=== PATIENT | male | born 1960 | race Caucasian/White ===

== ENCOUNTER 2021-07-07 17:20 | Inpatient (IN) | payer MEDICAID, SELFPAY ==
[~2021-07-07] VITALS: Ht 172.7 cm; Wt 104.8 kg
[2021-07-07 17:20] VITALS: BP_SYST 128
--- NOTE | 2021-07-07 17:20 | NUR ---
Pt brought in by ALS ambulance from [facility] after pt was found down at home. LKWT was 1634, pt presents altered, incomprehensible speech, unable to follow commands.
--- NOTE | 2021-07-07 17:20 | NUR ---
Patient to ER bed 3 to gown for evaluation. Side rails up.
--- NOTE | 2021-07-07 17:20 | NUR ---
BROUGHT IN BY [facility], PLACED IN BED #[address] JOHN AT BEDSIDE UPON ARRIVAL.
--- NOTE | 2021-07-07 17:21 | NUR ---
Taken to CT by werner and RN
--- NOTE | 2021-07-07 17:21 | NUR ---
CODE STROKE CALLED BY ER STAFF
--- NOTE | 2021-07-07 17:22 | NUR ---
ER at bedside examining patient.
[2021-07-07] MEDS ORDERED: ONDANSETRON HCL 4 MG/2 ML VIAL ONE (17:45)
[2021-07-07] MEDS ORDERED: ONDANSETRON HCL 4 MG/2 ML VIAL IVP ONE (17:45)
[2021-07-07 17:47] LABS: BASOPHILS % (AUTO) 0.5 % (0.0-2.0); EOSINOPHILS # (AUTO) 0.3 K/uL (0.0-0.4); EOSINOPHILS % (AUTO) 3.8 % (0.0-4.0); HEMATOCRIT 43.8 % (36-54); HEMOGLOBIN 14.9 g/dL (14.0-18.0); LYMPHOCYTES # (AUTO) 1.8 K/uL (1.0-5.5); MEAN CORPUSCULAR HEMOGLOBIN 32 pg (27-31); MEAN CORPUSCULAR HGB CONC 34 % (32-36); MEAN CORPUSCULAR VOLUME 95 fL (79.0-98.0); MONOCYTES # (AUTO) 0.6 K/uL (0.0-1.0); MONOCYTES % (AUTO) 8.1 % (1.7-9.3); NEUTROPHILS # (AUTO) 4.3 K/uL (1.8-7.7); NEUTROPHILS % (AUTO) 61.6 % (40.0-70.0); PLATELET COUNT (AUTO) 208 K/uL (130-430); RED BLOOD CELL COUNT(AUTO) 4.61 MIL/uL (4.2-6.2); RED CELL DISTRIBUTION WIDTH 13.7 % (9.0-15.0)
--- NOTE | 2021-07-07 17:50 | NUR ---
Contacted by telemedicine, pt information given and forwarded to Neurologist. Awaiting Neurologist reply at this time.
[2021-07-07 18:03] LABS: CALCIUM 8.3 mg/dL (8.4-11.0); CREATININE 1.14 mg/dL (0.55-1.30); POTASSIUM 3.6 mmol/L (3.5-5.1)
[2021-07-07 18:08] LABS: ALBUMIN 3.4 g/dL (3.4-4.8); TOTAL BILIRUBIN 0.3 mg/dL (0.0-1.0)
--- NOTE | 2021-07-07 18:11 | NUR ---
Marcell Martin called back for further instructions on patient care.
--- NOTE | 2021-07-07 18:13 | NUR ---
Dr. Frank at bedside consulting with Telemedicine
--- NOTE | 2021-07-07 18:15 | NUR ---
Neuro stated no TPA needed at this time, recommended toxicology screen and CTA if possible.
[2021-07-07 18:18] LABS: INR 0.9 (0.80-1.20); PROTHROMBIN TIME 9.4 SECS (9.5-12.5)
[2021-07-07 18:41] LABS: BILIRUBIN,URINE NEGATIVE (NEGATIVE); CLARITY/URINE CLEAR (CLEAR); COLOR,URINE YELLOW (YELLOW); GLUCOSE,URINE NEGATIVE (NEGATIVE); KETONES,URINE NEGATIVE (NEGATIVE); LEUKOCYTE ESTERASE ,URINE NEGATIVE (NEGATIVE); NITRITE, URINE NEGATIVE (NEGATIVE); PROTEIN URINE NEGATIVE (NEGATIVE); UROBILINOGEN,URINE 0.2 (0.2-1.0)
[2021-07-07 18:44] LABS: BLOOD, URINE TRACE (NEGATIVE)
[2021-07-07 18:54] LABS: BACTERIA,URINE FEW /HPF (None Seen); RBC,URINE 0-3 /HPF (0-3); WBC,URINE 0-3 /HPF (0-3)
[2021-07-07 18:56] LABS: BARBITURATE, URINE NEGATIVE (NEG <=200); BENZODIAZEPINE, URINE NEGATIVE (NEG <=150); CANNABINOID, URINE NEGATIVE (NEG <=50); COCAINE, URINE NEGATIVE (NEG <=150); METHAMPHETAMINES SCREEN,URINE POSITIVE (NEG <=500); OPIATE, URINE NEGATIVE (NEG <=100); PHENCYCLIDINE SCREEN,URINE NEGATIVE (NEG <=25); UR TRICYCLIC ANTIDEPRESSANTS NEGATIVE (NEG <=300); URINE AMPHETAMINE POSITIVE (NEG <=500); URINE METHADONE NEGATIVE (NEG <=200); URINE OXYCODONE SCREEN NEGATIVE (NEG <=100); URINE PROPOXYPHENE SCREEN NEGATIVE (NEG <=300)
[2021-07-07] MEDS ORDERED: NACL 0.9% 1,000 ML IV ONE (19:30)
--- NOTE | 2021-07-07 20:21 | NUR ---
Patient resting quietly. No acute distress noted. Vital signs within normal range.
--- NOTE | 2021-07-07 21:00 | NUR ---
Assumed care of patient at change of shift. Introduced self to patient, sleeping comfortably at this time. easily arousable but [place]. noted to have left sided facial paralysis/drooping. No other neuro focal deficits noted. iv site to LAC/RAC patent and intact. bed to low position sr up, continue to monitor.
[2021-07-07] MEDS ORDERED: D5/0.45 NS 1,000 ML IV SCH (21:15)
--- NOTE | 2021-07-07 21:35 | NUR ---
Sister at bedside reports patient does not take any medication and is full code
[2021-07-07] MEDS ORDERED: AZITHROMYCIN 500 MG in D5W 250 ML IV ONE (22:15)
[2021-07-07] MEDS ORDERED: cefTRIAXone 1 GM IVPB PREMIX 50 ML IV ONE (22:15)
--- NOTE | 2021-07-07 23:00 | NUR ---
Patient will be admitted to care of . Admitted to Tele unit. Will go to room 113b. Belongings list completed. Complete and up to date summary report printed. SBAR report to be given at bedside with opportunity for questions. report given to jeremy rx\n
[2021-07-07] MEDS ORDERED: AZITHROMYCIN 500 MG/VIAL (ZITHROMAX) IV ONE (23:10)
[2021-07-07 23:20] VITALS: BP_SYST 148
--- NOTE | 2021-07-07 23:20 | NUR ---
ADMISSION NOTE Received patient from ER via sandor, received report from SENIOR TECH MANUFACTURING ENGINEERING. Patient admitted with diagnosis of SYNCOPE,ALOC,TIA, BELLS PALSY. Patient oriented to hospital routine, call light, toileting and safety-patient verbalized understanding.
--- NOTE | 2021-07-07 23:30 | NUR ---
patient medicated as ordered w/ d5 1/2 ns at 50ml/hr along w/ rocephin 1gm ivpb to RAC. patient azithromycin to be hung by Sara segura.
--- NOTE | 2021-07-08 02:14 | NUR ---
ROUNDS PATIENT ASLEEP, RESPIRATIONS EVEN AND UNLABORED, WILL CONTINUE TO MONITOR.
--- NOTE | 2021-07-08 04:29 | NUR ---
Consultation Paged Reason for Consultation: Aloc, Syncope Was consult called: Y Person who was notified: Stephany Consulting Physician: Dr. Todd Ordering Physician: Dr. Fitzgerald
--- NOTE | 2021-07-08 05:12 | NUR ---
CONSULT REASON FOR CONSULT: ALOC CONSULTING PHYSICIAN: DR. ENNIS SHOW DESIGN SUPERVISOR PHONE NUMBER: [phone] ORDERING PHYSICIAN: DR. NAVARRO
--- NOTE | 2021-07-08 06:57 | NUR ---
CLOSING NOTES PATIENT STILL ASLEEP, RESPIRATIONS EVEN AND UNLABORED, NO SIGNS OF ANY PAIN AND DISCOMFORT NOTED. ALL NEEDS ATTENDED TO. CALL LIGHT PLACED WITHIN REACH.
[2021-07-08 07:21] LABS: BASOPHILS % (AUTO) 0.2 % (0.0-2.0); HEMOGLOBIN 14.7 g/dL (14.0-18.0); LYMPHOCYTES # (AUTO) 0.7 K/uL (1.0-5.5); LYMPHOCYTES % (AUTO) 7.5 % (20.5-51.5); MEAN CORPUSCULAR HEMOGLOBIN 33 pg (27-31); MEAN CORPUSCULAR HGB CONC 35 % (32-36); MEAN CORPUSCULAR VOLUME 93 fL (79.0-98.0); MONOCYTES # (AUTO) 0.5 K/uL (0.0-1.0); MONOCYTES % (AUTO) 5.2 % (1.7-9.3); NEUTROPHILS # (AUTO) 8.5 K/uL (1.8-7.7); NEUTROPHILS % (AUTO) 87.1 % (40.0-70.0); PLATELET COUNT (AUTO) 199 K/uL (130-430); RED BLOOD CELL COUNT(AUTO) 4.52 MIL/uL (4.2-6.2); RED CELL DISTRIBUTION WIDTH 13.8 % (9.0-15.0); WHITE BLOOD COUNT (AUTO) 9.8 K/uL (4.8-10.8)
[2021-07-08 08:00] VITALS: BP_SYST 136
[2021-07-08 08:00] LABS: ANION GAP 9 (5-15); CALCIUM 8.2 mg/dL (8.4-11.0); CHLORIDE 109 mmol/L (98-107); CREATININE 0.85 mg/dL (0.55-1.30); GLUCOSE 132 mg/dL (70-99); POTASSIUM 3.6 mmol/L (3.5-5.1); SODIUM SERUM 140 mmol/L (136-145); UREA NITROGEN, BLOOD 11 mg/dL (8-21)
--- NOTE | 2021-07-08 08:00 | NUR ---
Initial Notes Patient lying asleep in bed, wakes to verbal stimuli. Patient is very lethargic. Oriented to self. Noted left-sided facial drooping. Slurred speech. Patient unable to lift left upper and lower extremities. Oxygen saturation on room air 88%, patient with labored breathing. Placed patient on oxygen 2 liters per minute via N/C, saturation remained below 90%. Increased oxygen to 4 liters per minute, patient now saturating at 95% with non-labored breathing. Will continue to monitor.
[2021-07-08 08:03] LABS: GFR AFRICAN AMERICAN 118 mL/min (>90)
[2021-07-08 08:16] LABS: ALANINE AMINOTRANSFERASE 19 U/L (12-78); ASPARTATE AMINOTRANSFERASE 15 U/L (10-37); THYROID STIMULATING HORMONE 1.14 uIu/mL (0.36-3.74)
[2021-07-08 08:18] LABS: TOTAL BILIRUBIN 0.5 mg/dL (0.0-1.0)
--- NOTE | 2021-07-08 10:00 | NUR ---
Notes- Bladder scan done and has 400ml urine at this time, called Dr. Fitzgerald cell and left voice message.
--- NOTE | 2021-07-08 10:07 | NUR ---
Nutrition Update Billy Scale 18 noted. Pt admitted for syncope, ALOC. Diet: NPO (pending swallow screen) BMI: 35.2 kg/m2 RD to follow per nutrition care standards.
--- NOTE | 2021-07-08 10:30 | NUR ---
MD ROUNDS Dr. Todd here to see patient.
[2021-07-08 10:50] LABS: TRIGLYCERIDES 75 mg/dL (30-150)
[2021-07-08 10:51] LABS: CHOLESTEROL 111 mg/dL (<200); HDL CHOLESTEROL 34 mg/dL (>45); LDL CHOLESTEROL 70 mg/dL (<100)
--- NOTE | 2021-07-08 11:00 | NUR ---
Rosas Catheter Insertion Inserted 16 F Rosas catheter with aseptic technique. Catheter patent and draining 200 cc of clear, yellow urine. Patient tolerated well.
[2021-07-08] MEDS: NACL 0.9% 1,000 ML IV SCH ×2 (11:38→21:00)
--- NOTE | 2021-07-08 11:50 | NUR ---
Notes Spoke with patient's sister Kria to obtain consent for MRI. Consent obtained. Dr. Todd spoke with sister Kira regarding prognosis and procedure.
[2021-07-08 12:00] VITALS: BP_SYST 135
--- NOTE | 2021-07-08 12:22 | NUR ---
Restraints: Patient is getting more awake and trying to get out of bed, trying to pull out vivas and ivf tubinng, spoke to Dr Fitzgerald and ordered to put restraints. will monitor patient.
--- NOTE | 2021-07-08 12:37 | NUR ---
CONSULTATION PAGED/CALLED Reason for Consultation: [] SYNCOPE Person Who was Notified: [] DR MARIE Consulting Physician: [] DR MARIE Glazier Helper Specialty: [] CARDIO Ordering Physician: [] DR NELSON
--- NOTE | 2021-07-08 12:41 | NUR ---
REMINDED NEURO DR ENNIS, ANOTHER NEW CONSULT RE: ALOC. TEXTED HIS HIS CELL PHONE
--- NOTE | 2021-07-08 13:15 | NUR ---
SALES REPRESENTATIVE PUBLIC UTILITIES Visit Dr. Fitzgerald's SALES REPRESENTATIVE PUBLIC UTILITIES Mirta here to see patient.
--- NOTE | 2021-07-08 13:30 | NUR ---
U/S Tech at bedside providing echocardiogram.
--- NOTE | 2021-07-08 15:00 | NUR ---
Notes Patient taken for MRI. Spoke with family regarding restraints for patient safety. Family gave consent.
--- NOTE | 2021-07-08 15:45 | NUR ---
MRI- Per echocardiograph tech, they cannot do test because patient cannot stay still. Dr. Todd Made aware.
[2021-07-08 16:37] VITALS: BP_SYST 131
--- NOTE | 2021-07-08 16:42 | NUR ---
S.T. SWALLOW EVAL SWALLOW EVAL COMPLETED. PT PRESENTS W/ MOD OROPHARYNGEAL DYSPHAGIA W/ DELAYED BOLUS TRANSFER FOR PUREE AND COUGHING ON THIN LIQUIDS INDICATING RISK FOR ASPIRATION. PT ALSO W/ DECREASED SUSTAINED ALERTNESS WHICH WILL INCREASE HIS RISK FOR ASPIRATION, MALNUTRITION, AND DEHYDRATION. REC: PUREE DIET. THICKENED LIQUIDS (NECTAR THICK CONSISTENCY). FEED ONLY WHEN FULLY AWAKE. NURSE CHICHI KATZ NOTIFIED.
--- NOTE | 2021-07-08 17:45 | NUR ---
U/S natural gas plant technician here to perform U/S of bilateral carotid.
--- NOTE | 2021-07-08 18:31 | NUR ---
Closing Notes Patient lying in bed, wakes to name. Family at bedside. No signs of distress or pain noted. HOB elevated 30 degrees. Bed left in lowest position, bed alarm on.
--- NOTE | 2021-07-08 19:04 | NUR ---
Notes Dr. Hamilton here and made aware of neuro consult. Per MD, he will see patient tomorrow morning because patient was seen by tele neuro already.
--- NOTE | 2021-07-08 19:30 | NUR ---
Opening note Received report and assumed care. Patient lethargic and restless. Left sided flacid but able to disconnect java grails developer with right hand despite restraint present. Requires frequent reorientation; unable to follow commands. will continue to monitor.
[2021-07-08 20:00] VITALS: BP_SYST 147
--- NOTE | 2021-07-08 20:30 | NUR ---
Assessment completed; repositioned for comfort frequently. will continue to monitor.
[2021-07-09 00:30] VITALS: BP_SYST 156
[2021-07-09] MEDS: NACL 0.9% 1,000 ML IV SCH ×2 (05:32→17:00)
--- NOTE | 2021-07-09 06:55 | NUR ---
IV site Right hand 22g started by Srikanth PATE
[2021-07-09 07:21] LABS: BASOPHILS % (AUTO) 0.3 % (0.0-2.0); EOSINOPHILS # (AUTO) 0.1 K/uL (0.0-0.4); EOSINOPHILS % (AUTO) 0.5 % (0.0-4.0); HEMATOCRIT 47.8 % (36-54); HEMOGLOBIN 16.5 g/dL (14.0-18.0); LYMPHOCYTES # (AUTO) 1.2 K/uL (1.0-5.5); MEAN CORPUSCULAR HEMOGLOBIN 32 pg (27-31); MEAN CORPUSCULAR HGB CONC 34 % (32-36); MEAN CORPUSCULAR VOLUME 94 fL (79.0-98.0); MONOCYTES # (AUTO) 0.9 K/uL (0.0-1.0); MONOCYTES % (AUTO) 7.2 % (1.7-9.3); NEUTROPHILS # (AUTO) 9.8 K/uL (1.8-7.7); PLATELET COUNT (AUTO) 223 K/uL (130-430); RED BLOOD CELL COUNT(AUTO) 5.08 MIL/uL (4.2-6.2); RED CELL DISTRIBUTION WIDTH 13.8 % (9.0-15.0); WHITE BLOOD COUNT (AUTO) 11.9 K/uL (4.8-10.8)
--- NOTE | 2021-07-09 07:25 | NUR ---
Initial Note Patient found sitting on the floor with respiratory therapist at bedside. Patient was found by respiratory therapist already on the floor. Restraints were off. Bed alarm off at the time. Three bedside rails up. Patient confused and unable to answer questions, but able to follow some commands. Patient able to assist with getting back into bed with right arm and right leg only. Four person assist back into bed. Bed alarm on, bed in lowest position. Vital signs taken, restraints put back on, no distress noted. No visible injury noted.
[2021-07-09 07:27] LABS: CALCIUM 8.5 mg/dL (8.4-11.0); CREATININE 0.92 mg/dL (0.55-1.30); POTASSIUM 4.3 mmol/L (3.5-5.1)
--- NOTE | 2021-07-09 07:50 | NUR ---
MD Rounds Dr. Hamilton here to see and examine patient at bedside, made aware of fall.
[2021-07-09 08:00] VITALS: BP_SYST 156
--- NOTE | 2021-07-09 08:30 | NUR ---
Family Notified of Fall Spoke with patient's sister Kira and notified of fall.
--- NOTE | 2021-07-09 11:40 | NUR ---
notes- patient having EEG at bedside at this time.
[2021-07-09 12:00] VITALS: BP_SYST 157
--- NOTE | 2021-07-09 12:55 | NUR ---
Notes Family visiting at bedside. Patient arouses to family's voices and tries to speak. Becomes lethargic and falls back to sleep.
[2021-07-09 16:00] VITALS: BP_SYST 149
--- NOTE | 2021-07-09 16:41 | NUR ---
CT Scan Assisted patient to CT scan but unable to perform test. Patient very agitated and moving restlessly. Spoke with Dr. Hamilton and notified.
[2021-07-09] MEDS ORDERED: LORazepam 2 MG/ML VIAL IVP ONE (16:45)
--- NOTE | 2021-07-09 16:45 | NUR ---
HIGH ALERT NOTE: Called Dr. ENNIS back at [phone] identified within the medical roster to verify physician authenticity.
--- NOTE | 2021-07-09 16:50 | NUR ---
Notes Informed radiology that patient has a sedative ordered for CT scan. Asked if they can complete procedure tonight if possible and tomorrow morning if necessary.
--- NOTE | 2021-07-09 16:50 | NUR ---
Dietitian Recommendations * Recommend continuing puree diet w/ NTL (ONS Ensure Enlive TID comes standard w/ this diet -- provides an additional 1050 kcal/day, 60 gm protein/day) * Encourage increase PO intakes when fully alert LEOP[address] RD Please refer to Nutrition Assessment for details. Addendum: 07/09/21 at [address] Amended: Links added.
--- NOTE | 2021-07-09 18:38 | NUR ---
Closing Notes Patient asleep in bed. No signs of pain or distress noted. Oxygen flowing at 4 liters per minute with 95% saturation. Bed left in lowest position, bed alarm on.
--- NOTE | 2021-07-09 19:30 | NUR ---
Opening Note Received report. Pt Awake with eyes closed and restless. HOB elevated, no facial grimacing noted. On 4L NC O2 state 96%, no respiratory distress noted, labored on exertion. Has R hand IV patent and intact on SL. Rosas Cath in place and bag secure to bedside. Call light within reach, bed to lowest/locked and alarmed. On safety fall/aspiration precaution. All needs attended to. Will continue to monitor
--- NOTE | 2021-07-09 19:55 | NUR ---
Note Received CT report from Kira. Paged Dr. Hamilton and made aware of new findings. No new orders and no BP medication unless blood pressure SBP above 200.
[2021-07-09 20:52] VITALS: BP_SYST 156
[2021-07-10 00:20] VITALS: BP_SYST 146
[2021-07-10] MEDS: NACL 0.9% 1,000 ML IV SCH ×3 (00:20→22:02)
[2021-07-10 00:39] VITALS: BP_SYST 159
--- NOTE | 2021-07-10 06:25 | NUR ---
CLOSING NOTE Pt resting in bed with HOB elevated. Alertx0, non-labored breathing, no respiratory distress, on 4LNC O2 stat 95%. IV site patent and intact, no complications. All needs attended to. Call light within reach, bed to lowest and locked. On fall safety/aspiration precaution.
[2021-07-10 07:42] LABS: BASOPHILS % (AUTO) 0.4 % (0.0-2.0); EOSINOPHILS # (AUTO) 0.2 K/uL (0.0-0.4); EOSINOPHILS % (AUTO) 1.9 % (0.0-4.0); HEMATOCRIT 49.6 % (36-54); HEMOGLOBIN 17.1 g/dL (14.0-18.0); LYMPHOCYTES # (AUTO) 1.3 K/uL (1.0-5.5); LYMPHOCYTES % (AUTO) 11.5 % (20.5-51.5); MEAN CORPUSCULAR HEMOGLOBIN 32 pg (27-31); MEAN CORPUSCULAR HGB CONC 34 % (32-36); MEAN CORPUSCULAR VOLUME 94 fL (79.0-98.0); MONOCYTES % (AUTO) 8.7 % (1.7-9.3); NEUTROPHILS # (AUTO) 8.9 K/uL (1.8-7.7); NEUTROPHILS % (AUTO) 77.5 % (40.0-70.0); PLATELET COUNT (AUTO) 202 K/uL (130-430); RED BLOOD CELL COUNT(AUTO) 5.27 MIL/uL (4.2-6.2); RED CELL DISTRIBUTION WIDTH 13.6 % (9.0-15.0); WHITE BLOOD COUNT (AUTO) 11.5 K/uL (4.8-10.8)
--- NOTE | 2021-07-10 08:00 | NUR ---
Patient is in bed, A/Ox1. Garbled speech. On 4L NC. Saturation well. V/S within acceptable parameters. Call light in place, bed locked at the lowest position, will continue to monitor.
[2021-07-10 08:10] LABS: CALCIUM 8.2 mg/dL (8.4-11.0); CREATININE 0.81 mg/dL (0.55-1.30); POTASSIUM 3.2 mmol/L (3.5-5.1)
[2021-07-10] MEDS ORDERED: ASPIRIN 81 MG TAB.CHEW PO ONE (10:30)
--- NOTE | 2021-07-10 11:00 | NUR ---
IV RE-INSERTION: Complaining of pain to IV site. Restarted on Right AC, #20. Successful after attempts. Site intact and patent.
[2021-07-10 12:20] VITALS: BP_SYST 152
--- NOTE | 2021-07-10 14:37 | NUR ---
patient attempts to get out bed; he is instructed not to get out of bed. Restraints remain on.
[2021-07-10 16:20] VITALS: BP_SYST 162
--- NOTE | 2021-07-10 18:55 | NUR ---
HIGH ALERT NOTE: Called Dr. Fitzgerald back at identified within the medical roster to verify physician authenticity.
[2021-07-10 19:00] VITALS: BP_SYST 142
--- NOTE | 2021-07-10 19:15 | NUR ---
change of shift.pt.presents affect;restless.loc;confused.pt.presents restraint rt.wrist.in place skin/circulation assessed wnl. pt.presents iv access intact location;rt.antecubital iv fluids infusing.pt.presents vivas cath intact urine content;volume present. pt.presents incoherent speech;un-intelligble.call light/telephone w/in access of the pt. '
--- NOTE | 2021-07-10 19:30 | NUR ---
Opening note Received pt, resting in bed with HOB elevated. Alertx1 on 4L NC no distress noted, labored on exertion. Awake, appears restless and responsive with slur speech. IV on LFA patent and intact, no infiltration or complications, IVF running. All needs attended to. Education solid waste division supervisor light usage and orientation of room, pt unable to understand. Rosas Cath intact and secured, right hand soft restraint in place, no complications. Bed to lowest and locked/alarmed, with call light within reach. On fall/aspiration precaution. Will continue to monitor.
[2021-07-10] MEDS ORDERED: POTASSIUM CHLORIDE 40 MEQ in NS 250 ML IV ONE (20:00)
--- NOTE | 2021-07-10 20:00 | NUR ---
i noted had ordered k+rider:40meq's.i have initiated the administration k+rider.rt.wrist restraint intact skin/circulation wnl. pt.repositioned.[address] via [address] in place.call light/telephone placed w/in access of the pt.
[2021-07-10 20:14] VITALS: BP_SYST 142
[2021-07-10] MEDS ORDERED: KCL 40 mEq in 100 mL (PREMIX) 100 ML IV ONE (21:58)
--- NOTE | 2021-07-10 22:00 | NUR ---
p.assessed.pt.presents affect;restless.loc:confused.restraint rt.wrist in place skin/circulation assessed wnl.iv access intact iv fluids infusing.pt.repositioned.call light/telephone placed w/in access of the pt.
--- NOTE | 2021-07-10 22:52 | NUR ---
note Pt is more restless/agitated and trying to get out of bed. Pt has left side weakness and gaining strength. Pt was able to pull IV line with left hand from the right side of bed, disconnecting IV tubing from IV bag. Found pt holding IV tubing on left hand and fluids spilled on to the floor. Page Dr. Fitzgerald and received order Ativan 1mg PRN and Apply left hand restraint for safety.
--- NOTE | 2021-07-10 22:53 | NUR ---
HIGH ALERT NOTE: Called Dr. Fitzgerald and identified within the medical roster to verify physician authenticity.
--- NOTE | 2021-07-10 23:15 | NUR ---
pt.presents increased affect;aggressive/loc;confused.isaiah;risk manager paged . apprised of the pt's change in status. ordered ativan 1mg ivp q-4hrs/prn.i have administered ativan 1mg ivp.to assess the pt's status per protocol.pt.repositioned.iv access intact. call light/telephone placed w/in access of the pt.pt.presents active lt.hand.pt.had grasps the iv line. ordered restraints wrist bilateral lt.wrist restraints in conjunction w rt.wrist restraints applied.initial.skin/circulation assessed wnl.
--- NOTE | 2021-07-10 23:15 | NUR ---
note Pt has now bilateral soft wrist restrain as per order. Still agitated and yelling with slur speech, unable to make needs known. RN will administer IVP Ativan 1mg PRN as per order and will monitor closely.
[2021-07-10] MEDS: LORazepam 2 MG/ML VIAL IVP PRN (23:20)
--- NOTE | 2021-07-11 | NUR ---
pt.assessed.pt.presents quiescent affect;resting.restraints wrist bilateral in place.skin/circulation wnl.iv access intact iv fluids infusing.o2 nasal cannulae in place.pt.repositioned.call light/telephone placed w/in access of the pt.
[2021-07-11 01:17] VITALS: BP_SYST 150
--- NOTE | 2021-07-11 02:00 | NUR ---
pt.assessed.pt.presents affect;restless;aggressive.loc:confused.i have administered ativan:1mg ivp.to assess the pt per protocol.pt.repositioned.iv access intact.o2 nasal cannulae placed;applied to the pt.call light/telephone placed w/in access of the pt.restraints wrist bllateral in place skin/circulation assessed wnl.
[2021-07-11] MEDS: LORazepam 2 MG/ML VIAL IVP PRN ×3 (02:03→23:33)
--- NOTE | 2021-07-11 04:00 | NUR ---
pt.assessed.pt.presents affect;restless/loc:confused.pt.repositioned.iv access intact.restraints wrist bilateral in place skin/circulation assessed wnl.pt.requested water.pt provided water w thicket mixture.call light/telephone placed w/in access of the pt.
[2021-07-11] MEDS: NACL 0.9% 1,000 ML IV SCH ×2 (05:15→22:05)
--- NOTE | 2021-07-11 06:04 | NUR ---
pt.assessed.pt.presents affect;restless/aggressive.loc;confused.i have administered ativan:1mg ivp to assess the pt.per protocol.pt.repositioned.iv access intact iv fluids infusing.
--- NOTE | 2021-07-11 06:09 | NUR ---
Closing note Pt awake/restless/agitated/kicking. Yelling with slur speech. Alertx0 on 4L NC O2 stat 95% on exertion with labored breathing. Ativan 1mg given per RN PRN. Bilateral restrain in place no complications. Pt has multiple attempts to get out of bed periodically. IV patent and intact, no infiltration or complications, currently running IVF. All needs attended to. Education salesperson books light usage and orientation of room, pt confused and unable to understand. Will endorse to day shift. Bed to lowest and locked/alarmed, with call light within reach. On fall/aspiration precaution. Will frequent monitor closely.
[2021-07-11 08:00] VITALS: BP_SYST 145
--- NOTE | 2021-07-11 08:00 | NUR ---
PATIENT IN BED, NO S/S OF DISTRESS, PATIENT SLEEPING AT THIS TIME, IV INTACT AND PATENT, [place] DRAINING CLEAR YELLOW URINE, TOLERATING DIET, FAMILY AT BEDSIDE, BILATERAL SOFT WRIST RESTRAINTS IN PLACE.
--- NOTE | 2021-07-11 12:00 | NUR ---
PATIENT IN BED, NO S/S OF DISTRESS, PATIENT IS COMMUNICATING MORE AND MOVING IN BED, REPOSITIONED Q2 HR AND MORE IF DEEMED UNCOMFORTABLE, NO MAJOR CHANGES, SPOKE TO MD AT GOLF COURSE STARTER AT BEDSIDE, ANSWERED ALL QUESTIONS.
--- NOTE | 2021-07-11 12:34 | NUR ---
Patient is very sleepy. He is unable to follow commands and participate in the evaluation. Plan: Attempt tomorrow. Spoke with RN.
[2021-07-11 12:45] VITALS: BP_SYST 140
--- NOTE | 2021-07-11 16:00 | NUR ---
FAMILY AT BEDSIDE, ANSWERED ALL QUESTIONS, ASSSITED IN FEEDING PATIENT AN ENSURE AND HE DRANK THE ENTIRE DRINK.
[2021-07-11 16:05] VITALS: BP_SYST 140
--- NOTE | 2021-07-11 18:00 | NUR ---
PATIENT PULLED OUT IV WHEN MOVING IN BED, ATTEMPTED TO GET IN NEW IV WAS UNSUCCESSFUL, HAVING OTHER NURSE TRY AT THIS TIME, WILL FOLLOW UP.
--- NOTE | 2021-07-11 19:30 | NUR ---
Opening note Received report from day RN. Pt resting in bed with eyes closed but moving in bed, restless. Sister at bedside upset. Stats IV still waiting for IV reinsertion. Reassured sister IV will be reinserted as soon as possible. Pt on 4L NC O2 stat 95%, labored breathing due to exertion. Call light within reach, bed to lowest and locked/alarmed. on fall/aspiration precaution.
--- NOTE | 2021-07-11 19:45 | NUR ---
Note IV reinsert to LFA 24g by RN.
[2021-07-11 23:43] VITALS: BP_SYST 146
[2021-07-12 01:11] VITALS: BP_SYST 155
--- NOTE | 2021-07-12 02:30 | NUR ---
note Pt agitated/getting out of bed. Turned and repositioned, pt able to relax and fell asleep.
[2021-07-12] MEDS: NACL 0.9% 1,000 ML IV SCH ×2 (05:17→15:01)
--- NOTE | 2021-07-12 05:32 | NUR ---
Closing not Pt sleeping, arousal by voice and touch. No facial grimacing or discomfort noted. IV site running, patent and intact, no infiltration noted. Able to for 2 hours straight and becomes restless. Re-orients and pt relaxes at times. All needs attended to and provided frequent checks. Call light within reach. Bed to lowest/locked. On fall/aspiration precaution.
[2021-07-12] MEDS: LORazepam 2 MG/ML VIAL IVP PRN ×2 (06:13→19:51)
[2021-07-12 07:32] LABS: BASOPHILS % (AUTO) 0.3 % (0.0-2.0); EOSINOPHILS # (AUTO) 0.4 K/uL (0.0-0.4); EOSINOPHILS % (AUTO) 4.7 % (0.0-4.0); HEMATOCRIT 47.1 % (36-54); HEMOGLOBIN 16.6 g/dL (14.0-18.0); LYMPHOCYTES # (AUTO) 1.1 K/uL (1.0-5.5); LYMPHOCYTES % (AUTO) 15.1 % (20.5-51.5); MEAN CORPUSCULAR HEMOGLOBIN 33 pg (27-31); MEAN CORPUSCULAR HGB CONC 35 % (32-36); MEAN CORPUSCULAR VOLUME 93 fL (79.0-98.0); MONOCYTES # (AUTO) 0.6 K/uL (0.0-1.0); MONOCYTES % (AUTO) 8.1 % (1.7-9.3); NEUTROPHILS # (AUTO) 5.4 K/uL (1.8-7.7); NEUTROPHILS % (AUTO) 71.8 % (40.0-70.0); PLATELET COUNT (AUTO) 225 K/uL (130-430); RED BLOOD CELL COUNT(AUTO) 5.09 MIL/uL (4.2-6.2); RED CELL DISTRIBUTION WIDTH 13.6 % (9.0-15.0); WHITE BLOOD COUNT (AUTO) 7.5 K/uL (4.8-10.8)
[2021-07-12 07:44] LABS: CALCIUM 8.3 mg/dL (8.4-11.0); CREATININE 0.76 mg/dL (0.55-1.30); POTASSIUM 3.4 mmol/L (3.5-5.1)
[2021-07-12 08:00] VITALS: BP_SYST 148
--- NOTE | 2021-07-12 08:15 | NUR ---
RN note Sister is at bedside, patient is asleep.
--- NOTE | 2021-07-12 09:54 | NUR ---
Opening note Patient is agitated and restless in bed, A&Ox1 unable to reorient due to cognitive status. No signs or symptoms of respiratory distress. IV is infusing no signs or symptoms of infiltration. unable to educate patient due to cognitive status. Bed is in lowest position, fall and aspiration precautions are in place. Will continue to monitor.
[2021-07-12 12:00] VITALS: BP_SYST 160
--- NOTE | 2021-07-12 15:01 | NUR ---
RN NOTE Patient is sitting up in bed, eating by feeder. Tolerating well. Slightly more oriented.
[2021-07-12 16:00] VITALS: BP_SYST 144
--- NOTE | 2021-07-12 18:58 | NUR ---
Closing note Patient is agitated and restless in bed, A&Ox1 unable to reorient due to cognitive status. No signs or symptoms of respiratory distress. IV is infusing no signs or symptoms of infiltration. All needs were met. Bed is in lowest position, fall and aspiration precautions are in place. Will endorse report to shift boss.
[2021-07-12 21:11] VITALS: BP_SYST 154
--- NOTE | 2021-07-12 22:27 | NUR ---
Opening note Received report from day nurse. Patient is agitated and restless and trying to get out of bed and pulling vivas cath. Alertx1, unable to reorient due to cognitive status. Labored breathing on exertion, on 4L NC, O2 stat 95%. IV is infusing no signs or symptoms of infiltration. Vivas cath in place and secured to bedside, free flowing clear yellow output. All needs were met. Bed is in lowest position/ locked/alarmed, on fall/aspiration precautions. Family at bedside.
--- NOTE | 2021-07-13 | NUR ---
note Pt restless/agitated/pulling vivas cath. Unable to re-oriented due to cognitive condition. Able to reposition and able to relax.
[2021-07-13 00:39] VITALS: BP_SYST 133
[2021-07-13] MEDS: NACL 0.9% 1,000 ML IV SCH ×3 (01:06→21:55)
[2021-07-13] MEDS: LORazepam 2 MG/ML VIAL IVP PRN ×2 (01:06→06:41)
--- NOTE | 2021-07-13 03:30 | NUR ---
note making rounds, pt wakes up periodically and appears restless with labored respiration due to exertion, trying to get up and out of bed. re-orient and educate for safety. Pt unable to understand. Will continue to frequency monitor.
--- NOTE | 2021-07-13 06:16 | NUR ---
closing note Patient sleep and wake up periodically. when awaken pt is agitated and restless and trying to get out of bed and pulling vivas cath. Alertx1, unable to reorient due to cognitive status. Labored breathing on exertion, on 4L NC, O2 stat 95%. IV is infusing no signs or symptoms of infiltration. Vivas cath in place and secured to bedside, free flowing clear yellow output. All needs were met. Bed is in lowest position/ locked/alarmed, on fall/aspiration precautions. Will endorse to day nurse.
--- NOTE | 2021-07-13 07:38 | NUR ---
RN OPENING NOTE PATIENT IS LAYING IN BED APPEARS TO BE RESTING. REPORT WAS ENDORSED BY NIGHT NURSE. PATIENT HAS KICKED OFF HIS SHEETS AND PULLING UP GOWN AND EXPOSING HIMSELF. COVERED PATIENT WITH SHEET, BUT KEEPS REMOVING WITH HIS LEGS.PATIENT IS ON TELEMONITOR, VITAL SIGNS ARE STABLE. PATIENT SHOWS NO SIGNS OF ACUTE DISTRESS. PATIENT HAS SOFT WRIST RESTRAINTS . PATIENT IS CLOSE TO NURSES STATION. PATIENT HAS NO OTHER NEEDS AT THIS TIME.
[2021-07-13 07:47] VITALS: BP_SYST 147
--- NOTE | 2021-07-13 10:00 | NUR ---
CM note: Received call from nurse Yenifer concurrent review from [facility] ins. # [phone] , advised to send the [facility] to a [facility] , tel # [phone], fax # [phone]. -- Rocio/sister made aware she is agreeable with the POC. Addendum: 07/13/21 at 1541 by Sudha Sorenson RN >> called [facility]/inpatient referral unit # [phone]. S/W Huyen who confirmed received the fax referral. Stated she will assign the nurse /Cm for review. The assigned CM will call me tomorrow to update the admission statue.
--- NOTE | 2021-07-13 11:48 | NUR ---
iv fluid New iv fluid bag hung per order. patient is awake and alert laying in bed keeps trying to remove his Orsas catheter. Patient keeps throwing his legs over the bed rail. Patient is confused family is at bed side. Patient has all safety precautions in place. no other needs at this time. patient is close to nurses station.
[2021-07-13 12:28] VITALS: BP_SYST 159
--- NOTE | 2021-07-13 12:45 | NUR ---
RN ROUNDING PATIENT APPEARS TO BE RESTING WITH NO SIGNS OF ANY DISTRESS,BREATHING IS EQUAL AND NON LABORED. PATIENT HAS ALL SAFETY PRECAUTIONS IN PLACE. CALL LIGHT IS WITH PATIENT. FAMILY IS AT BED SIDE. NO OTHER NEEDS AT THIS TIME.
--- NOTE | 2021-07-13 13:43 | NUR ---
Nutrition F/U Admitting Diagnosis: Syncope, ALOC, TIA Medical History Comment: PMH: methamphetamine use per physician notes Pt developed major stroke w/ L-sided weakness and aphasia as well as mental confusion per physician notes SARS-CoV-2 Ag (Rapid) Negative 07/07 Subjective Information: Pt was seen in bed, in restraints. Family at bedside. Per PROPERTY LOSS INSURANCE CLAIM ADJUSTER, pt only had a few spoons of yogurt this morning, did not drink his Ensure. PROPERTY LOSS INSURANCE CLAIM ADJUSTER also reported that pt 's family sometimes helps w/ feeding pt and he would still only eat 25% of the meal. Per EMR review, pt gets agitated and tries to get out of bed several times a day. Pt is on 4L NC, abdomen is soft w/ no BM recorded since admission. Speech therapy saw pt on 07/08 and noted pt to have moderate oropharyngeal dysphagia and rec pureed diet w/ NTL. Billy scale: 14. No pressure injury, pt w/ non-pitting generalized and BLE edema. PO records indicate pt w/ negligible PO intake x6 days now. Initiation of nutrition support may be warranted if PO intake remains poor. Current Diet Order/Nutrition Support: Puree, NTL x4 days Pertinent Medications: Ativan, IVF Pertinent Labs 07/12 K 3.4L, BG 103H, BUN 11WNLL, Cre 0.76WNL. Height: 5 feet 8.00 inches Weight: 231 pounds/ 104.998543 kilograms (07/09) --stable. Body Mass Index: 35.12 kg/m2 [place]/Adjusted Body Weight: 154#/70 kg. Adj IBW (obesity): 173#/79 kg Estimated Energy Expenditure (kcals/day) 8276-8238 kcal/day (30-35 kcal/kg Adj IBW d/t stroke) Estimated Protein Required (g/day) 103-158 gm/day (1.3-2 gm/kg Adj IBW d/t stroke) Estimated Fluid Required (l/day) 2.4-2.8 L/day (1 ml/kcal/day for maintenance) Problem/Etiology/Signs/Symptoms Suboptimal nutritional intakes related to lethargy as evidenced by RN report and negligible PO intake records. (*now on 6 days negligible PO, ongoing) Expected Outcomes/Goals - Monitor appetite and PO intakes w/ goal of pt meeting at least 75% of estimated nutritional needs, labs trending WNL, normal GI function, and skin integrity/wt maintenance Dietitian Recommendations * Recommend continuing puree diet w/ NTL (ONS Ensure Enlive TID comes standard w/ this diet -- provides an additional 1050 kcal/day, 60 gm protein/day) * Encourage increase PO intakes when fully alert * Consider nutrition support (EN vs PN), if PO intake remains poor by f/u. Follow Up High Risk: F/U in 2-3days
--- NOTE | 2021-07-13 13:53 | NUR ---
Dietitian Recommendations * Recommend continuing puree diet w/ NTL (ONS Ensure Enlive TID comes standard w/ this diet -- provides an additional 1050 kcal/day, 60 gm protein/day) * Encourage increase PO intakes when fully alert * Consider nutrition support (EN vs PN), if PO intake remains poor by f/u. Please see Nutrition F/U note for details. HALFWAY, RD
--- NOTE | 2021-07-13 15:29 | NUR ---
paging Dr. Amilcar Browne for dvt proh. Patient appears to be resting no signs of any distress, breathing is equal and non labored. Patient has family at bed side. all safety precautions in place. no other needs at this time.
[2021-07-13 16:00] VITALS: BP_SYST 151
--- NOTE | 2021-07-13 16:30 | NUR ---
Dr. Fitzgerald HIGH ALERT NOTE: Called Dr. Fitzgerald back at phone number identified within the medical roster to verify physician authenticity. orders were received.
[2021-07-13 19:00] VITALS: BP_SYST 146
--- NOTE | 2021-07-13 19:02 | NUR ---
RN CLOSING NOTE PATIENT APPEARS TO BE RESTING WITH BOTH EYES CLOSED NO SIGNS OF ANY DISTRESS, BREATHING IS EQUAL AND NON LABORED. PATIENT HAS ALL SAFETY PRECAUTIONS IN PLACE. FAMILY IS AT BED SIDE. PATENT HAS NO THER NEEDS AT THIS TIME. Addendum: 07/13/21 at 1906 by Adriana Sanz RN ORDERS RECEIVED FROM DR. ENNIS FOR MEDICATION FOR MRI TOMORROW PLEASE GIVE 1 HOUR PRIOR.
[2021-07-13] MEDS ORDERED: LORazepam 2 MG/ML VIAL IVP PRN (19:15)
--- NOTE | 2021-07-13 20:30 | NUR ---
LISTENED TO PT'S SISTER KITTY ABOUT HER CONCERNS. SHE RELAYED THAT HER WISH IS TO SPEAK W CM RE POSSIBILITY OF TRANSFERRING PT TO [facility]. ASSURED PT'S SISTER THAT CM WOULD BE THE ONE WITH WHOM TO DISCUSS THIS MATTER. SISTER KITTY SAID THAT SHE WOULD BE HERE AT THE HOSPITAL ON SUNDAY (TOMORROW) AT 0900
[2021-07-13] MEDS: DOCUSATE SODIUM 100 MG CAPSULE PO SCH (21:00)
[2021-07-13] MEDS: HEPARIN SODIUM,PORCINE 5,000 UNITS/ML VIAL SUBCUT SCH (21:54)
[2021-07-14] VITALS: BP_SYST 146
--- NOTE | 2021-07-14 06:42 | NUR ---
Informed RIO SIDHU that pt is off monitor for the second time.
[2021-07-14] MEDS: NACL 0.9% 1,000 ML IV SCH ×2 (07:24→17:43)
--- NOTE | 2021-07-14 07:40 | NUR ---
Opening note Received report from night nurse. Patient is alert and oriented x3. On 5 L nasal cannula and tolerating well. IV is patent, infusing fluid as ordered with no signs of infiltration noted. Family at bedside. Fall and safety precautions in place. Will continue to monitor.
[2021-07-14 08:00] VITALS: BP_SYST 125
[2021-07-14] MEDS: DOCUSATE SODIUM 100 MG CAPSULE PO SCH ×2 (08:59→21:13)
[2021-07-14] MEDS: HEPARIN SODIUM,PORCINE 5,000 UNITS/ML VIAL SUBCUT SCH ×2 (09:01→21:13)
[2021-07-14 12:35] VITALS: BP_SYST 143
--- NOTE | 2021-07-14 15:27 | NUR ---
[facility] Note[facility]: to complete the review, her md wants to see the newest MRI result. Cm to fax the result to fax # [phone]. >> MRI is out of service today. Sebastian Mancia RN : dr. Alfonso castayartemio to have it done tomorrow. Addendum: 07/14/21 at 1535 by Sudha Sorenson RN >Ezequiel Amaro: still in review, no accepting decision yet, sebastian Frankel. Addendum: 07/14/21 at 1638 by Sudha Sorenson RN Babak Amaro/[facility]: unable to accept the pt.
[2021-07-14 16:26] VITALS: BP_SYST 136
--- NOTE | 2021-07-14 16:47 | NUR ---
SWALLOW/ORAL EVAL PROFESSIONAL SPEECH SERVICES CALLED LEFT A VOCIEMAIL WITH
--- NOTE | 2021-07-14 18:52 | NUR ---
Closing note Patient is resting in bed. On 5 L nasal cannula and tolerating well. IV is patent, infusing fluid as ordered with no signs of infiltration noted. Fall and safety precautions in place. Rosas catheter attached draining by gravity. Will endorse to night nurse.
--- NOTE | 2021-07-14 19:20 | NUR ---
OPENING NOTES PATIENT RESTING, HOB ELEVATED, NO RESPIRATORY DISTRESS NOTED. CALL LIGHT WITHIN REACH, PATIENT UNABLE TO USE CALL LIGHT, PATIENT LISTENS TO TEACHING OF USING CALL LIGHT USAGE. WILL CLOSELY MONITOR, BED ALARM ON, BED AT LOWEST POSITION, BED LOCKED. LANCASTER CATHETER IN PLACE, NO KINKS, NO LOOPS, BAG NOT TOUCHING THE FLOOR. FALL, RESPIRATORY, ASPIRATION, AND SAFETY PRECAUTIONS IN PLACE. WILL CONTINUE TO MONITOR.
[2021-07-14 20:00] VITALS: BP_SYST 143
[2021-07-14] MEDS: LORazepam 2 MG/ML VIAL IVP PRN (23:52)
[2021-07-15 01:00] VITALS: BP_SYST 141
[2021-07-15] MEDS: NACL 0.9% 1,000 ML IV SCH ×3 (06:12→23:10)
[2021-07-15 06:45] LABS: BASOPHILS % (AUTO) 0.6 % (0.0-2.0); EOSINOPHILS # (AUTO) 0.4 K/uL (0.0-0.4); EOSINOPHILS % (AUTO) 6.7 % (0.0-4.0); HEMATOCRIT 43.8 % (36-54); HEMOGLOBIN 15.2 g/dL (14.0-18.0); LYMPHOCYTES # (AUTO) 1.3 K/uL (1.0-5.5); LYMPHOCYTES % (AUTO) 21.9 % (20.5-51.5); MEAN CORPUSCULAR HEMOGLOBIN 33 pg (27-31); MEAN CORPUSCULAR HGB CONC 35 % (32-36); MEAN CORPUSCULAR VOLUME 93 fL (79.0-98.0); MONOCYTES # (AUTO) 0.8 K/uL (0.0-1.0); MONOCYTES % (AUTO) 12.8 % (1.7-9.3); NEUTROPHILS # (AUTO) 3.4 K/uL (1.8-7.7); PLATELET COUNT (AUTO) 224 K/uL (130-430); RED BLOOD CELL COUNT(AUTO) 4.69 MIL/uL (4.2-6.2); RED CELL DISTRIBUTION WIDTH 13.6 % (9.0-15.0); WHITE BLOOD COUNT (AUTO) 5.9 K/uL (4.8-10.8)
--- NOTE | 2021-07-15 07:00 | NUR ---
CLOSING NOTES PATIENT RESTING, HOB ELEVATED, NO RESPIRATORY DISTRESS NOTED. CALL LIGHT WITHIN REACH, PATIENT UNABLE TO USE CALL LIGHT, WILL CLOSELY MONITOR, BED ALARM ON, BED AT LOWEST POSITION, BED LOCKED. LANCASTER CATHETER IN PLACE, NO KINKS, NO LOOPS, BAG NOT TOUCHING THE FLOOR. FALL, RESPIRATORY, ASPIRATION, AND SAFETY PRECAUTIONS IN PLACE THROUGHOUT SHIFT. ALL NEEDS MET THROUGHOUT SHIFT. WILL ENDORSE CARE TO ONCOMNG SHIFT. MRI CONSENT SIGNED AWAITING MRI. ENDORSED TO AM SHIFT.
[2021-07-15 07:58] LABS: ALBUMIN 2.8 g/dL (3.4-4.8); CALCIUM 8.4 mg/dL (8.4-11.0); CREATININE 0.89 mg/dL (0.55-1.30); POTASSIUM 3.6 mmol/L (3.5-5.1); TOTAL BILIRUBIN 0.4 mg/dL (0.0-1.0)
[2021-07-15 08:00] VITALS: BP_SYST 154
--- NOTE | 2021-07-15 08:00 | NUR ---
Patient resting quietly in bed with no distress noted at this time. Patient stable.
[2021-07-15] MEDS: DOCUSATE SODIUM 100 MG CAPSULE PO SCH ×2 (08:59→21:29)
[2021-07-15] MEDS: ASPIRIN 81 MG TAB.CHEW PO SCH (08:59)
[2021-07-15] MEDS: HEPARIN SODIUM,PORCINE 5,000 UNITS/ML VIAL SUBCUT SCH ×2 (09:02→21:26)
--- NOTE | 2021-07-15 09:03 | NUR ---
Scheduled medications given per order. Patient stable at this time.
--- NOTE | 2021-07-15 10:15 | NUR ---
Patient stable with Rian, PT and sister at bedside. Emptied 650mls of clear, yellow urine from Rosas drainage bag. Patient stable at this time.
--- NOTE | 2021-07-15 10:25 | NUR ---
Patient ambulated with walker in hallway to [facility] and taken for MRI.
--- NOTE | 2021-07-15 10:58 | NUR ---
Patient in MRI truck. Administered prn ativan for agitation. Patient stable at this time.
--- NOTE | 2021-07-15 11:30 | NUR ---
Patient returned to unit. Per radiologic tech, unable to do MRI; patient not cooperative.
--- NOTE | 2021-07-15 12:04 | NUR ---
S.T. SWALLOW EVAL SWALLOW EVAL COMPLETED. SISTER PRESENT. COMPARED TO PREVIOUS EVAL (07/08), PT IS MUCH MORE AWAKE, BUT ALSO VERY RESTLESS AND CONFUSED. PT PRESENTS W/ GENERALLY FUNCTIONAL OROPHARYNGEAL SWALLOW FOR PUREE AND THIN/THICK LIQUIDS. NO S/S OF ASPIRATION. REC: PUREE DIET. THIN LIQUIDS OK. PT'S SISTER IN AGREEMENT. NURSE HIRAM NOTIFIED.
[2021-07-15 12:45] VITALS: BP_SYST 143
--- NOTE | 2021-07-15 15:54 | NUR ---
Sister requested transfer to [facility] for MRI and continued care. Spoke w/ Iris at transfer center at [facility]-their neurologist refused the patient for transfer, she stated the transfer was a lateral transfer and they would not accept the patient.[phone].Sister notified the patient was not accepted at [facility].
--- NOTE | 2021-07-15 16:14 | NUR ---
Paged Dr. Fitzgerald for d/c tele order. Unable to leave message; will call again shortly.
[2021-07-15 16:25] VITALS: BP_SYST 134
--- NOTE | 2021-07-15 17:15 | NUR ---
Second page to Dr. Fitzgerald for d/c tele order. Unable to leave message. Will call again.
--- NOTE | 2021-07-15 18:34 | NUR ---
Patient asleep with sister, Kira at bedside at this time. Patient has been restless and trying to get out of bed since return from MRI. Stable at this time.
--- NOTE | 2021-07-15 19:30 | NUR ---
OPENING NOTES: Received report from daysinft nurse. Patient is resting in bed, awake and alert to name and . He is on room air with no s/s of respiratory distress or discomfort. He has removed tele monitor and despite education, will not let me put monitor on. According to daysinft nurse, pt has refused monitor all day. Patient has IV on LFA and IVF currently not connected. According to Jessy patient has refused fluids. Will check IV and continue fluids. Patient was found with no gown. I have assisted patient with gown and have ensured all safety precautions. Bed is locked and in the lowest position with alarm on, call light within reach.
[2021-07-15 20:01] VITALS: BP_SYST 138
--- NOTE | 2021-07-15 21:00 | NUR ---
IV RE-INSERTION: Patient has pulled IV out. Restarted on righ wrist. Successful after [attempts. Resumed current IVF of 2 and regulated @ [] per hour. Will observe for any signs of infiltration. Addendum: 07/15/21 at 2349 by Tammie Rocha RN IV RE-INSERTION: Patient has pulled IV out. Restarted on right wrist 22 g . Successful after 2 attempts. I taped and secured with kerlix dressing. Will observe for any signs of infiltration.
--- NOTE | 2021-07-15 22:15 | NUR ---
PATIENT IS RESTLESS AND VERY ANXIOUS, HE IS YELLING AND IS ATTEMPTING TO GET OUT OF BED. EDUCATED PATIENT ABOUT THE RISKS OF GETTING OUT OF BED DUE TO LEFT SIDED WEAKNESS AND RISK FOR FOR FALLS. HE CONTINUE TO ATTEMPT TO GET OUT OF BED AND IS RESTLESS AND CONTINUES TO BE ANXIOUS. WILL ADMINISTER PRN ANXIETY MEDS.
[2021-07-15] MEDS: LORazepam 2 MG/ML VIAL IVP PRN (22:43)
--- NOTE | 2021-07-15 22:43 | NUR ---
ADMINISTERED PRN ATIVAN FOR ANXIETY PATIENT TOLERATED WELL, WILL CONTINUE TO MONITOR.
--- NOTE | 2021-07-15 23:50 | NUR ---
RN ROUNDS POST ATIVAN PATIENT IS RESTING IN BED AND APPEARS TO BE ASLEEP. WILL CONTINUE TO MONITOR PATIENT
[2021-07-16 00:46] VITALS: BP_SYST 150
--- NOTE | 2021-07-16 07:31 | NUR ---
CLOSING NOTES: Patient is resting in bed, awake and alert to name and . He is on room air with no s/s of respiratory distress or discomfort. He continued to removed tele monitor and despite education. Patient has IV on right wrist, infusing well. Bed is locked and in the lowest position with alarm. All needs were met throughout shift. I have endorsed to dayshift nurse.
--- NOTE | 2021-07-16 07:45 | NUR ---
FALL: PT FOUND ON THE FLOOR NEXT TO BED, BED ALARM SOUNDED, STAFF WAS UNABLE TO REACH PT IN TIME TO PREVENT THE FALL, PT ASSISTED BACK INTO BED, ASSESSED FOR INJURIES, NO VISIBLE INJURY NOTED, CALL PLACED TO , WAS ORDERED TO GIVE ATIVAN 1MG IVP, CALL LIGHT PLACED WITHIN REACH, WILL CONT' TO MONITOR AND ASSESS.
[2021-07-16 08:00] VITALS: BP_SYST 144
[2021-07-16] MEDS: LORazepam 2 MG/ML VIAL IVP PRN (08:18)
[2021-07-16 12:00] VITALS: BP_SYST 138
[2021-07-16] MEDS ORDERED: IOHEXOL 350 mgI/mL, 150 ML INFUS..BTL IV ONE (13:34)
--- NOTE | 2021-07-16 17:27 | NUR ---
PHYSICAL THERAPY CO-SIGN The Physical Therapy Progress Notes documented by Weave Room Supervisor have been reviewed. Reviewed/Co-Signed by: Rubia Medellin PT Documentation Done by:[facility] MANAGER PROGRESS TODD Addendum: 07/16/21 at 1727 by Rubia Medellin PT Amended: Links added.
--- NOTE | 2021-07-16 19:45 | NUR ---
OPENING NOTES: Received report from dayshift nurse. Patient is awake, alert to name and . He has IV on right wrist and left forearm with dry and intact dressing. Ensured all safety precautions. Bed is locked and in the lowest position with alarm on. Call light within reach.
--- NOTE | 2021-07-16 20:06 | NUR ---
paged paged doctor bianca
--- NOTE | 2021-07-16 20:12 | NUR ---
SPOKE WITH DR. ARCINIEGA AND CONFIRMED ORDERS TO CONTINUE HEPARIN. HE STATES OKAY TO CONTINUE AND HAS ENTERED INTO HIS NOTE. ALSO INFORMED HIM PT CONTINUE TO BE VERT AGITATED AND IS NON COMPLIANT AND WILL NOT KEEP TELE MONITOR ON. HE BEGINS TO YELL SOON I ATTEMPT TO PUT IT ON. PER DR. ARCINIEGA, STATES HIS AWARE PT WILL NOT KEEP TELE MONITOR ON. ORDERS FOR SEROQUEL WERE GIVEN. WILL ENTER AND ADMINISTER ORDERED.
[2021-07-16 20:41] VITALS: BP_SYST 117
[2021-07-16] MEDS ORDERED: QUEtiapine FUMARATE 25 MG TABLET PO PRN (20:45)
[2021-07-16] MEDS: DOCUSATE SODIUM 100 MG CAPSULE PO SCH (21:16)
[2021-07-16] MEDS: HEPARIN SODIUM,PORCINE 5,000 UNITS/ML VIAL SUBCUT SCH (21:17)
[2021-07-16] MEDS: NACL 0.9% 1,000 ML IV SCH (21:19)
[2021-07-17 00:26] VITALS: BP_SYST 147
--- NOTE | 2021-07-17 03:09 | NUR ---
RN ROUNDS: PATIENT IS RESTLESS AND UNABLE TO STAY ASLEEP. HE IS IN STABLE CONDITION AND STAYING IN BED. WILL CONTINUE TO MONITOR.
--- NOTE | 2021-07-17 05:30 | NUR ---
RN ROUNDS: PATIENT IS RESTING IN BED AND APPEARS TO BE ASLEEP. HE IS IN STABLE CONDITION. WILL CONTINUE TO MONITOR.
[2021-07-17] MEDS: NACL 0.9% 1,000 ML IV SCH ×2 (05:58→17:20)
--- NOTE | 2021-07-17 06:35 | NUR ---
CLOSING NOTES: Patient is resting in bed, awake and alert to name and . He is on room air with no s/s of respiratory distress or discomfort. He refused tele monitor and despite education, Dr. Soto was made aware last night. Patient has IV right forearm, infusing well. He has vivas catheter draining to gravity Patient did not make any attempts to get out of bed during the night but has made two attempts this morning. He is restless but states understanding that it's not safe to try to get out of bed. Bed is locked and in the lowest position with alarm. All needs were met throughout shift. I will endorsed to dayshift nurse.
--- NOTE | 2021-07-17 07:36 | NUR ---
INITIAL NOTE: PATIENT IS ALERT, ORIENTED X2, CONFUSED, TRYING TO GET OUT OF BED, MOVING AROUND ON THE BED A LOT. LANCASTER CATHETER IS IN PLACE WITH CLEAR RANDALL URINE. PATIENT JUST PULLED OUT HIS IV SITE. WILL RE-START A NEW IV AND IVF LATER .
[2021-07-17 08:00] VITALS: BP_SYST 111
[2021-07-17] MEDS: HEPARIN SODIUM,PORCINE 5,000 UNITS/ML VIAL SUBCUT SCH ×2 (08:05→20:52)
[2021-07-17] MEDS: ASPIRIN 81 MG TAB.CHEW PO SCH ×2 (08:06→08:08)
[2021-07-17] MEDS: DOCUSATE SODIUM 100 MG CAPSULE PO SCH ×2 (08:07→20:50)
[2021-07-17 12:45] VITALS: BP_SYST 141
[2021-07-17 16:35] VITALS: BP_SYST 135
--- NOTE | 2021-07-17 17:38 | NUR ---
Nutrition F/U Admitting Diagnosis: Syncope, ALOC, TIA Medical History Comment: PMH: methamphetamine use per physician notes Pt developed major stroke w/ L-sided weakness and aphasia as well as mental confusion per physician notes SARS-CoV-2 Ag (Rapid) Negative 07/07 Subjective Information: RD rounded to pt's room and pt was seen sleeping soundly. Bedscale wt taken: 210# -- unsure of reliability. CLINICAL PSYCHOLOGIST reported that pt has been eating well at breakfast, usually 100%, then does not eat lunch. She stated that pt seems to tolerate liquids better as NTL, however, per ST swallow eval that took place 07/15, ST rec was for pureed diet w/ thin liquids OK now. CLINICAL PSYCHOLOGIST requested additional thickening agent to add to pt's ONS and other thin liquids. Per EMR review, PO intakes of 56% average x9 meals; last BM x1 07/15; abd is soft and non-distended w/ active bowel sounds; Billy scale: 17, no PIs noted; plan to D/C to contracted hospital. Current diet remains appropriate, however, encouragement at meal times is warranted. Current Diet Order/Nutrition Support: Puree, NTL x8 days Pertinent Medications: ativan, colace Pertinent Labs: 07/15: K 3.6 WNL, BG 97 WNL, BUN 8 WNL, CRE 0.89 WNL Height: 5 feet 8.00 inches Weight: 231 pounds/ 104.050074 kilograms (07/09) -- stable Body Mass Index: 35.12 kg/m2 [place]/Adjusted Body Weight: 154#/70 kg. Adj IBW (obesity): 173#/79 kg Estimated Energy Expenditure (kcals/day) 1216-4935 kcal/day (30-35 kcal/kg Adj IBW d/t stroke) Estimated Protein Required (g/day) 103-158 gm/day (1.3-2 gm/kg Adj IBW d/t stroke) Estimated Fluid Required (l/day) 2.4-2.8 L/day (1 ml/kcal/day for maintenance) Problem/Etiology/Signs/Symptoms Suboptimal nutritional intakes related to lethargy as evidenced by RN report and negligible PO intake records. (*improving, still poor) Expected Outcomes/Goals - Monitor appetite and PO intakes w/ goal of pt meeting at least 75% of estimated nutritional needs, labs trending WNL, normal GI function, and skin integrity/wt maintenance Dietitian Recommendations * Recommend continuing puree diet w/ NTL (ONS Ensure Enlive TID comes standard w/ this diet -- provides an additional 1050 kcal/day, 60 gm protein/day) * Encourage increase PO intakes when fully alert Follow Up High Risk: F/U in 2-3 days
--- NOTE | 2021-07-17 17:42 | NUR ---
Dietitian Recommendations * Recommend continuing puree diet w/ NTL (ONS Ensure Enlive TID comes standard w/ this diet -- provides an additional 1050 kcal/day, 60 gm protein/day) * Encourage increase PO intakes when fully alert LP, RD Please refer to Nutrition F/U for details.
--- NOTE | 2021-07-17 18:47 | NUR ---
Closing note: Patient is stable, sleeping most of the day. He is still on Normal Saline IVF at 100 ml/hr, Rosas catheter draining well with clear laura urine out put.
--- NOTE | 2021-07-17 19:15 | NUR ---
OPENING NOTES RECEIVED PATIENT IN BED EYES CLOSED. AROUSABLE TO LIGHT STIMULI. IVF INFUSING WITH IV LINE INTACT AND PATENT. BED ALARM ON.
[2021-07-17] MEDS ORDERED: CLOPIDOGREL BISULFATE 75 MG TABLET PO ONE (19:30)
[2021-07-17 20:44] VITALS: BP_SYST 129
--- NOTE | 2021-07-17 21:01 | NUR ---
MED PASS PATIENT DUE MEDICATIONS GIVEN AND TOLERATED. VITAL SIGNS STABLE. NO C/O PAIN AT THIS TIME.
--- NOTE | 2021-07-17 23:00 | NUR ---
ROUNDS PATIENT RESTING IN BED NO DISTRESS NOTED. BED ALARM ON.
[2021-07-18] VITALS: BP_SYST 135
--- NOTE | 2021-07-18 02:13 | NUR ---
ROUNDS PATIENT RESTING IN BED. BREATHING UNLABORED. IVF INFUSING.
[2021-07-18] MEDS: NACL 0.9% 1,000 ML IV SCH ×3 (04:31→21:29)
--- NOTE | 2021-07-18 04:49 | NUR ---
ROUNDS PATIENT RESTING IN BED. IVF INFUSING. BREATHING UNLABORED.
--- NOTE | 2021-07-18 06:24 | NUR ---
CLOSING NOTES NO CHANGE IN PATIENT CONDITION. PATIENT NEEDS ATTENDED. BED IN LOWEST LOCKED POSITION WITH ALARM ON.
[2021-07-18 06:57] LABS: BASOPHILS % (AUTO) 0.5 % (0.0-2.0); EOSINOPHILS # (AUTO) 0.2 K/uL (0.0-0.4); EOSINOPHILS % (AUTO) 3.7 % (0.0-4.0); HEMOGLOBIN 16.4 g/dL (14.0-18.0); LYMPHOCYTES # (AUTO) 0.9 K/uL (1.0-5.5); LYMPHOCYTES % (AUTO) 15.1 % (20.5-51.5); MEAN CORPUSCULAR HEMOGLOBIN 32 pg (27-31); MEAN CORPUSCULAR HGB CONC 35 % (32-36); MEAN CORPUSCULAR VOLUME 93 fL (79.0-98.0); MONOCYTES # (AUTO) 0.6 K/uL (0.0-1.0); MONOCYTES % (AUTO) 9.9 % (1.7-9.3); NEUTROPHILS # (AUTO) 4.3 K/uL (1.8-7.7); NEUTROPHILS % (AUTO) 70.8 % (40.0-70.0); PLATELET COUNT (AUTO) 267 K/uL (130-430); RED BLOOD CELL COUNT(AUTO) 5.08 MIL/uL (4.2-6.2); RED CELL DISTRIBUTION WIDTH 13.6 % (9.0-15.0); WHITE BLOOD COUNT (AUTO) 6.1 K/uL (4.8-10.8)
[2021-07-18 07:31] LABS: CALCIUM 8.3 mg/dL (8.4-11.0); CREATININE 0.89 mg/dL (0.55-1.30); POTASSIUM 3.6 mmol/L (3.5-5.1)
[2021-07-18 07:57] VITALS: BP_SYST 138
--- NOTE | 2021-07-18 07:59 | NUR ---
PATIENT RESTING IN BED. BREATHING EVEN AND NON LABORED TO O2 AT 3 L/NC. NO SIGNS OF ACUTE DISTRESS NOTED. FALL, SAFETY AND ASPIRATION PRECAUTION REINFORCED. CALL LIGHT WITHIN REACH. BED LOCKED, ALARM ON AND IN LOWEST POSITION. Addendum: 07/18/21 at 1221 by Kierra Strong RN OPENING NOTES:
[2021-07-18] MEDS: ASPIRIN 81 MG TAB.CHEW PO SCH (09:17)
[2021-07-18] MEDS: DOCUSATE SODIUM 100 MG CAPSULE PO SCH ×2 (09:17→21:13)
[2021-07-18] MEDS: CLOPIDOGREL BISULFATE 75 MG TABLET PO SCH (09:17)
[2021-07-18] MEDS: HEPARIN SODIUM,PORCINE 5,000 UNITS/ML VIAL SUBCUT SCH ×2 (09:25→21:15)
[2021-07-18 12:00] VITALS: BP_SYST 132
[2021-07-18] MEDS ORDERED: QUEtiapine FUMARATE 25 MG TABLET PO ONE (12:15)
--- NOTE | 2021-07-18 12:21 | NUR ---
SPOKE TO DR. ENNIS (MRI ORDER): SPOKE TO DR ENNIS AND MADE ORDER FOR MRI BRAIN/ HEAD W/O CONTRAST. PER DR ENNIS, GIVE SEROQUEL 50 MG PO 1 HR PRIOR TO MRI. WILL PUT ON THE ORDER.
--- NOTE | 2021-07-18 12:32 | NUR ---
Per MRI, Laura, please wait about 45 minutes to 1 hour to give PO Seroquel because she has one more patient prior to MrRachel Brown. Informed primary nurse, Nancy PATE.
--- NOTE | 2021-07-18 16:00 | NUR ---
CM note: updated clinicals status and faxed the CT head/neck/and brain , progress notes, MARs to Veronica at [facility] tel # [phone], transfer ctr fax # [phone]. Reported that the pt was unable to do the MRI despite sedatives given. Veronica will present the updated info sent today to her medical team for review. >> Together with Gabriel/PI met with pt family to update the dcp and option. 1 get approval from Neuro for an open MRI facility, 2. wait for [facility] review decision , 3 Transfer to another hospital with opened MRI services and 4 the Rights for AMA. Per Rocio, she agreed with the # 1, 3 and 4. CM will process in am. CARLA Brar is to call Neuro for clearance to transport the patient to outside MRI facility . Addendum: 07/18/21 at 1658 by Sudha Sorenson RN PER CARLA Brar, she spoke with dr. Hamilton, the md cleared pt to contracted rehab. The order faxed to Veronica/Transfer ctr. CM will f/u in am.
[2021-07-18 16:13] VITALS: BP_SYST 121
--- NOTE | 2021-07-18 18:50 | NUR ---
CLOSING NOTES: PATIENT RESTING IN BED. NO SIGNS OF ACUTE DISTRESS NOTED. FALL AND SAFETY MEASURES RENDERED. BED LOCKED, ALARM ON AND IN LOWEST POSITION. CALL LIGHT WITHIN REACH
--- NOTE | 2021-07-18 19:30 | NUR ---
Opening note Pt Awake, alert, confused. No respiratory distress noted, on 2L NCm non labored. IV intact to RFA on IVF. Received report from day nurse. All needs provided. Call light within reach. Bed to lowest/locked/alarmed/ aspiration precaution.
[2021-07-18] MEDS: QUEtiapine FUMARATE 25 MG TABLET PO PRN (21:14)
[2021-07-18 21:44] VITALS: BP_SYST 121
[2021-07-19 01:27] VITALS: BP_SYST 119
--- NOTE | 2021-07-19 03:00 | NUR ---
note Pt awake and attempted to get out of bed. Re-orient pt and nod understanding. Will do frequent rounding.
--- NOTE | 2021-07-19 06:21 | NUR ---
Closing note Pt sleeping, awake easily by voice and touch. No distress or discomfort. All needs provided. IV patent and intact on LFA IVF running, no complications. Call light within reach, bed to lowest position/lock/alarmed. on Fall/aspiration precaution.
[2021-07-19] MEDS: NACL 0.9% 1,000 ML IV SCH ×2 (06:56→17:00)
[2021-07-19 08:00] VITALS: BP_SYST 156
--- NOTE | 2021-07-19 08:00 | NUR ---
pt awake,confused,vss,pulled out equipment monitor phototypesetting,left sided weakness noted.IVF continue infusing and IV site covered with bandage roll.needs attended,call light & personal items within pt reach safety maintained.
[2021-07-19] MEDS: CLOPIDOGREL BISULFATE 75 MG TABLET PO SCH ×2 (09:00→09:44)
[2021-07-19] MEDS: ASPIRIN 81 MG TAB.CHEW PO SCH ×2 (09:00→09:44)
[2021-07-19] MEDS: DOCUSATE SODIUM 100 MG CAPSULE PO SCH ×3 (09:00→20:36)
[2021-07-19] MEDS: HEPARIN SODIUM,PORCINE 5,000 UNITS/ML VIAL SUBCUT SCH ×2 (09:45→20:35)
--- NOTE | 2021-07-19 10:00 | NUR ---
offered am meds,pt refused meds and remains confused and tried to get out of bed side rails up,bed alarm activated.continue to monitor pt.
--- NOTE | 2021-07-19 11:15 | NUR ---
PATIENT WILL NOT LEAVE TELE MONITOR ON RN CURTIS IS AWARE
--- NOTE | 2021-07-19 12:00 | NUR ---
pt seen by PT and eating lunch at bed,family here and visited at bedside.
--- NOTE | 2021-07-19 12:10 | NUR ---
LIZETH note: faxed updated PT and ST, I&O to Jaclyn at [facility]. Per Jaclyn the review in progress and no decision from the medical team yet. Addendum: 07/19/21 at 1629 by Sudha Sorenson RN >> Called back from Jaclyn: stated the patient is not accepted, not meet the acute rehab criteria. Her md recommended snf level. LIZETH updated Rocio with additional contracted snf.
[2021-07-19 12:14] VITALS: BP_SYST 123
--- NOTE | 2021-07-19 14:00 | NUR ---
pt resting well in bed,no acute distress noted.
--- NOTE | 2021-07-19 16:00 | NUR ---
VSS,PT RESTING IN BED,NO SIGNIFICANT CHANGES NOTED IN STAUTS.
[2021-07-19 16:14] VITALS: BP_SYST 134
--- NOTE | 2021-07-19 18:00 | NUR ---
PT EATING WELL FOR DINNER,NO N/V.SAFETY MAINTAINED.CALL LIGHT & PERSONAL ITEMS WITHIN PT REACH.
--- NOTE | 2021-07-19 19:30 | NUR ---
Opening note Received report from day nurse. Pt Awake, alert, confused. Verbally responsive and more awake and able to answer questions. No respiratory distress noted, on 2L NC non labored. IV to RFA infiltrated and not working, IV pump off and IV tubing disconnected. Will attempt to reinsert IV. All needs provided. Call light within reach. Bed to lowest/locked/alarmed/ aspiration precaution.
[2021-07-19 20:00] VITALS: BP_SYST 132
--- NOTE | 2021-07-19 20:52 | NUR ---
note IV reinserted to left wrist. IVF running and intact. Tolerated well.
[2021-07-19] MEDS: LORazepam 2 MG/ML VIAL IVP PRN (23:48)
[2021-07-20] VITALS (7 sets, daily range): BP systolic 129–172
--- NOTE | 2021-07-20 00:53 | NUR ---
Note patient wakes up often and tries to get out of bed, reeducated and reorient and patient voice understanding but gets confused at times.
[2021-07-20] MEDS: NACL 0.9% 1,000 ML IV SCH ×2 (03:00→13:16)
--- NOTE | 2021-07-20 05:50 | NUR ---
Closing note Pt in bed sleeping and easily awaken. No distress or discomfort at this time. IV patent and intact. Rosas cath free flowing and secured to bedside, no complications. All needs attended to. Call light within reach. Bed to lowest/lock/alarmed. On fall/aspiration precaution.
[2021-07-20] MEDS: CLOPIDOGREL BISULFATE 75 MG TABLET PO SCH (09:50)
[2021-07-20] MEDS: DOCUSATE SODIUM 100 MG CAPSULE PO SCH ×2 (09:50→21:38)
[2021-07-20] MEDS: ASPIRIN 81 MG TAB.CHEW PO SCH (09:50)
[2021-07-20] MEDS: HEPARIN SODIUM,PORCINE 5,000 UNITS/ML VIAL SUBCUT SCH ×2 (09:53→21:39)
--- NOTE | 2021-07-20 14:00 | NUR ---
Nutrition F/U Admitting Diagnosis: Syncope, ALOC, TIA Medical History Comment: PMH: methamphetamine use per physician notes Pt developed major stroke w/ L-sided weakness and aphasia as well as mental confusion per physician notes SARS-CoV-2 Ag (Rapid) Negative 07/07 Subjective Information: Pt is a/w placement to SNF/rehab facility. Per EMR review, abdomen is soft and nondistended w/ active bowel sounds, last BM 07/16 x1. Pt was last seen by speech therapy on 07/15 and rec pureed diet. Billy scale: 16, no skin issues/edema documented. Current Diet Order/Nutrition Support: Puree, NTL x11 days Pertinent Medications: ativan, colace, Seroquel, Heparin Pertinent Labs: 07/18: K 3.6 WNL, BG 100H, BUN 8 WNL, BUN 10WNL, CRE 0.89 WNL. No new labs. Height: 5 feet 8.00 inches Weight: 231 pounds/ 104.052908 kilograms (07/09) -- stable Body Mass Index: 35.12 kg/m2 [place]/Adjusted Body Weight: 154#/70 kg. Adj IBW (obesity): 173#/79 kg Estimated Energy Expenditure (kcals/day) 1340-0383 kcal/day (30-35 kcal/kg Adj IBW d/t stroke) Estimated Protein Required (g/day) 103-158 gm/day (1.3-2 gm/kg Adj IBW d/t stroke) Estimated Fluid Required (l/day) 2.4-2.8 L/day (1 ml/kcal/day for maintenance) Problem/Etiology/Signs/Symptoms Suboptimal nutritional intakes related to lethargy as evidenced by RN report and negligible PO intake records. (*improving, now fair PO intake) Expected Outcomes/Goals - Monitor appetite and PO intakes w/ goal of pt meeting at least 75% of estimated nutritional needs, labs trending WNL, normal GI function, and skin integrity/wt maintenance Dietitian Recommendations * Recommend continuing puree diet w/ NTL (ONS Ensure Enlive TID comes standard w/ this diet -- provides an additional 1050 kcal/day, 60 gm protein/day) * Encourage increase PO intakes when fully alert Follow Up High Risk: F/U in 2-3 days
--- NOTE | 2021-07-20 14:02 | NUR ---
Dietitian Recommendations * Recommend continuing puree diet w/ NTL (ONS Ensure Enlive TID comes standard w/ this diet -- provides an additional 1050 kcal/day, 60 gm protein/day) * Encourage increase PO intakes when fully alert Please see Nutrition F/U note for details. RETIREMENT, RD
--- NOTE | 2021-07-20 14:59 | NUR ---
CM Note: late entry faxed snf referrals yesterday as follow up today : Harjete Carbajal: no returning call. [facility]: no call back [facility], [place]: LVM f/u [facility], [place] : [facility] f[facility]u [facility] [place]: LVM to [place] for call back [facility]: per Gauri, not accepting/not contracted with [facility] , per Reg: has no contracted with [facility]: per JOHN Anderson, the pt is clinically accepted and to call Demi for bed assignment. >> Informed [facility]tr for possible transfer to [facility] today. She is agreeable with transferring pt to the said snf. Demi will give bed assignment once received auth from insurance.
--- NOTE | 2021-07-20 21:38 | NUR ---
Meds scheduled meds given; colace, Heparin. Patient was cooperative and swallowed med w/out difficulty.
--- NOTE | 2021-07-21 00:20 | NUR ---
IV start new IV started on LAC, # 24Gage angiocath, tolerated. Resumed fluids
--- NOTE | 2021-07-21 02:29 | NUR ---
sleeping Patient resting w/ eyes closed. Presently calm, no distressed. IVF infusing well, no sign of infiltration. Safety precautions in place, wctm.
[2021-07-21] MEDS: NACL 0.9% 1,000 ML IV SCH (02:30)
[2021-07-21 03:12] VITALS: BP_SYST 112
--- NOTE | 2021-07-21 07:34 | NUR ---
Initial note: Patient is alert, oriented x4, denies any pain or discomfort. He is on Normal Saline IVF at 100 Ml/Hr, no sign of infiltration. Rosas catheter is in place with clear yellow urine. Bed alarm is on, 3 side rails up, room close to station. Will continue monitor.
[2021-07-21 07:35] VITALS: BP_SYST 124
[2021-07-21] MEDS: DOCUSATE SODIUM 100 MG CAPSULE PO SCH ×2 (08:25→20:03)
[2021-07-21] MEDS: CLOPIDOGREL BISULFATE 75 MG TABLET PO SCH (08:26)
[2021-07-21] MEDS: ASPIRIN 81 MG TAB.CHEW PO SCH (08:26)
[2021-07-21] MEDS: HEPARIN SODIUM,PORCINE 5,000 UNITS/ML VIAL SUBCUT SCH ×2 (08:30→20:02)
[2021-07-21 08:54] VITALS: BP_SYST 124
--- NOTE | 2021-07-21 09:11 | NUR ---
LIZETH note: sebastian Simms: she received auth from insurance and assigned pt to room B/[facility] tel # [phone] or [phone]. >> Booked BLS ambulance transfer with [facility] [place] # [phone] Reservation # [id number] , picker packer time at 1150 am. >> Pt's sister,Kira and mother/Nancy made aware. They agreed with the discharge to [facility]. >> RIO Riley made aware, dc package placed in MST unit. Addendum: 07/21/21 at 0932 by Sudha Sorenson RN Received call from [place] changing the picker packer time to between 1230 -1 pm by [facility] ambulance. -- RIO Riley made aware.
--- NOTE | 2021-07-21 09:39 | NUR ---
Call [facility] and give report to Luz, a house visitor.
--- NOTE | 2021-07-21 10:50 | NUR ---
LIZETH Note: received call from [facility]: stated unable to take the pt due to internal issue. 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 She does not know when will be able to admit the patient. >> Cancelled the ambulance transportation with [facility] reference # [id number]. -- RN Rosemary made aware. >> Demi will notify family/Kira the reason for not admit the pt today.
[2021-07-21 12:00] VITALS: BP_SYST 121
--- NOTE | 2021-07-21 14:16 | NUR ---
PATIENT USES URINAL AND VOIDED 200 ML AFTER THE CATHETER REMOVED.
--- NOTE | 2021-07-21 14:45 | NUR ---
CM Note: snf F/U: Harjeet Carbajal: [facility]: the clinicals is in review. [facility]: Unable to accept, the facility is under survey. [facility] the clinicals is in review. [facility]: [facility]: no bed today, advised cm to call again for bed availability. >> Faxed the referral to [facility], tel [phone], fax# [phone] attlillian Tse.
[2021-07-21] MEDS: ACETAMINOPHEN 325 MG TABLET PO PRN (15:01)
[2021-07-21 16:06] VITALS: BP_SYST 132
--- NOTE | 2021-07-21 18:43 | NUR ---
Closing note: Patient is stable, no sign of distress, obeying command. He is using urinal for voiding well after F/C removed. He is tolerates pureed diet well.
--- NOTE | 2021-07-21 19:55 | NUR ---
OPENING NOTE RECEIVED REPORT FROM DAY RN. PATIENT IN BED RESTING. RESPIRATIONS EVEN AND UNLABORED ON RA. LEFT AC 24G IV PATENT AND SALINE LOCKED. FLUSHES WELL. NO SIGNS OF INFILTRATION NOTED. BED IN LOWEST AND LOCKED POSITION. SAFETY PRECAUTIONS IN PLACE. WILL CONTINUE TO MONITOR.
[2021-07-21 20:00] VITALS: BP_SYST 147
[2021-07-22 00:30] VITALS: BP_SYST 122
--- NOTE | 2021-07-22 03:00 | NUR ---
BEDSIDE COMMODE BROUGHT TO PT. USED FOR FALL PREVENTION. PT AMBULATES UNSTEADY.
[2021-07-22] MEDS: LORazepam 2 MG/ML VIAL IVP PRN (03:37)
[2021-07-22 08:00] VITALS: BP_SYST 108
[2021-07-22] MEDS: ASPIRIN 81 MG TAB.CHEW PO SCH (09:01)
[2021-07-22] MEDS: DOCUSATE SODIUM 100 MG CAPSULE PO SCH ×2 (09:01→22:40)
[2021-07-22] MEDS: CLOPIDOGREL BISULFATE 75 MG TABLET PO SCH (09:02)
[2021-07-22] MEDS: HEPARIN SODIUM,PORCINE 5,000 UNITS/ML VIAL SUBCUT SCH ×2 (09:06→22:46)
--- NOTE | 2021-07-22 11:35 | NUR ---
Note Pt sits up on side of bed to void and to eat his breakfast. Pt next to nurses' station for close observation. Pt uses urinal at bedside to void. Call light within reach. Pt has family at bedside at this time.
[2021-07-22 12:00] VITALS: BP_SYST 135
[2021-07-22 16:00] VITALS: BP_SYST 132
--- NOTE | 2021-07-22 16:13 | NUR ---
Discharge planning Per Claudia at [facility] cannot accept pt, not contracted. Harjeet Carbajal, ph [phone], per Sánchez Duarte reviewing, lt msg [facility] [phone] Called & lt msg with Chata @ [facility], ph [phone] Faxed pt info to Adenike at [facility], cell [phone] office [phone], states reviewing if can accept pt
--- NOTE | 2021-07-22 18:48 | NUR ---
Note Pt has been next to nurses' station all shift for close observation. Pt's bed in low position and bed alarm on all shift. Pt sits on side of bed to eat his meals. Call light within reach. No needs noted at this time.
[2021-07-22 19:30] VITALS: BP_SYST 106
--- NOTE | 2021-07-22 19:30 | NUR ---
OPENING NOTE PATIENT IS ASLEEP COMFORTABLE ORIENTED TO NAME. IV SITE NOT DETECTED. BREATHING ROOM AIR NO SIGNS OF RESPIRATORY DISTRESS OR PAIN. BED IS LOW AND CALL LIGHT IS WITHIN REACH.
[2021-07-22 20:00] VITALS: BP_SYST 112
--- NOTE | 2021-07-23 | NUR ---
note pt attempts to get out of bed, reeducate on safety, pt get agitated and yells. Assisted pt back to bed. Bed to lowest/locked/alarmed. Call light within reach and reeducated call light usage.
--- NOTE | 2021-07-23 | NUR ---
PATIENT IS ASLEEP COMFORTABLE NO SIGNS OF PAIN OR DISTRESS. BED IS LOW AND CALL LIGHT IS IN REACH.
--- NOTE | 2021-07-23 04:00 | NUR ---
PATIENT IS COMFORTABLE ASLEEP NO SIGNS OF PAIN OR DISTRESS. BED IS LOW AND CALL LIGHT IS WITHIN REACH.
--- NOTE | 2021-07-23 06:45 | NUR ---
CLOSING NOTE PATIENT IS ASLEEP COMFORTABLE NO SIGNS OF DISTRESS. BREATHING ROOM AIR NO PAIN. BED IS LOW AND CALL LIGHTS IN REACH. WILL ENDORSE TO NEXT SHIFT PATIENT IS IMPULSIVE AND FAMILY REQUESTED NO ATIVAN.
[2021-07-23 08:00] VITALS: BP_SYST 124
--- NOTE | 2021-07-23 08:00 | NUR ---
OPENING NOTE PATIENT FOUND IN BED SLEEPING, WITH NO COMPLAINTS OF PAIN OR DISCOMFORT. BREAKFAST TRAY WAS DELIVERED AND VS OBTAINED. NO SIGNS OF DISTRESS NOTED. BED IN LOWEST POSITION, LOCKED, TWO RAILS UP AND CALL LIGHT IN REACH. WILL CONTINUE TO MONITOR.
[2021-07-23] MEDS: CLOPIDOGREL BISULFATE 75 MG TABLET PO SCH (08:59)
[2021-07-23] MEDS: ASPIRIN 81 MG TAB.CHEW PO SCH (08:59)
[2021-07-23] MEDS: DOCUSATE SODIUM 100 MG CAPSULE PO SCH ×2 (08:59→21:15)
--- NOTE | 2021-07-23 09:00 | NUR ---
Case mgt: Rec'd voice mail from [facility] that they cannot accept pt--DH RH
[2021-07-23] MEDS: HEPARIN SODIUM,PORCINE 5,000 UNITS/ML VIAL SUBCUT SCH ×2 (09:05→21:17)
[2021-07-23 12:00] VITALS: BP_SYST 116
[2021-07-23] MEDS: ACETAMINOPHEN 325 MG TABLET PO PRN (12:43)
--- NOTE | 2021-07-23 13:44 | NUR ---
nursing note Patient found eating lunch with complaints of headache. patients states pain is 4 /10. Tylenol was given. will continue to monitor and reassess.
[2021-07-23 16:29] VITALS: BP_SYST 120
--- NOTE | 2021-07-23 19:30 | NUR ---
Opening note Received report from day nurse. Pt resting and turned on the left side. Eyes closed, verbally responsive, alert x3. No respiratory distress, non labored breathing. No IV access, currently has no IVF ordered. All needs attended to, call light within reach. Bed to lowest/locked/alarmed. On fall/aspiration precaution.
--- NOTE | 2021-07-23 19:31 | NUR ---
closing note Patient is resting, with no signs of distress noted. Call light in reach, bed locked and lowest position and two rails are up. fall, safety and aspiration precautions in place. Will endorse to pack master.
[2021-07-23 20:00] VITALS: BP_SYST 103
[2021-07-24] VITALS: BP_SYST 112
--- NOTE | 2021-07-24 | NUR ---
note pt attempts to get out of bed, reeducate on safety, pt get agitated and yells. Assisted pt back to bed. Bed to lowest/locked/alarmed. Call light within reach and reeducated call light usage. Addendum: 07/24/21 at 0654 by Marifer Sheridan LVN documented wrong time
[2021-07-24 08:00] VITALS: BP_SYST 102
[2021-07-24] MEDS: ASPIRIN 81 MG TAB.CHEW PO SCH (08:13)
[2021-07-24] MEDS: DOCUSATE SODIUM 100 MG CAPSULE PO SCH ×2 (08:14→21:37)
[2021-07-24] MEDS: CLOPIDOGREL BISULFATE 75 MG TABLET PO SCH (08:14)
[2021-07-24] MEDS: HEPARIN SODIUM,PORCINE 5,000 UNITS/ML VIAL SUBCUT SCH ×2 (08:18→21:38)
[2021-07-24 12:00] VITALS: BP_SYST 108
--- NOTE | 2021-07-24 12:00 | NUR ---
NURSING NOTE PATIENT FOUND IN BED LYING DOWN WITH FAMILY AT BEDSIDE. NO COMPLAINTS OF PAIN OR DISTRESS NOTED. VS OBTAINED AND WNL. MEAL TRAY DELIVERED. WILL CONTINUE TO MONITOR.
--- NOTE | 2021-07-24 13:50 | NUR ---
Nutrition F/U RD reviewed pt's current EMR including diet Hx, physician notes, nursing notes, pertinent labs/meds/procedures, care trends, and care activity. Short note d/t high pt load. Current Diet Order/Nutrition Support: MIGUEL Acuña x15 days RD rounded to pt's room -- pt was sleeping soundly. Evidence of lunch tray present w/ about 100% intake of Ensure Enlive, yogurt, pudding, and gelatin. Pt also had a container of fruited gelatin in a container likely brought in by family members per DIRECTOR TOXICOLOGY report. Bedscale wt taken: 210# -- unsure of reliability d/t linens/bedding/possible bedscale error. 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 Per EMR review, average PO intakes of 75% x7 meals; pt is pending D/C to either ECF/AL/SNF. Pt is at moderate nutritional risk; RD to F/U within 3-5 days.
[2021-07-24 16:00] VITALS: BP_SYST 110
--- NOTE | 2021-07-24 18:52 | NUR ---
CLOSING NOTE Patient is resting, with no signs of distress noted. Call light in reach, bed locked and lowest position and two rails are up. fall, safety and aspiration precautions in place. patient is pending placement for transport. Will endorse to caustic cresylate shift superintendent.
--- NOTE | 2021-07-24 19:30 | NUR ---
Opening note Received report from day nurse. Pt resting in bed and turned to the side. Eyes closed, alert x3. No respiratory distress, non labored breathing, no discomfort noted. Currently has no IV running running or IV access. All needs attended to, call light within reach. Bed to lowest/locked/alarmed. On fall/aspiration precaution.
[2021-07-24 20:15] VITALS: BP_SYST 103
[2021-07-24] MEDS: QUEtiapine FUMARATE 25 MG TABLET PO PRN (21:37)
[2021-07-25 00:32] VITALS: BP_SYST 106
--- NOTE | 2021-07-25 03:00 | NUR ---
note pt awake up, tossed and turned. Head to foot of bed. Assisted repositioning. Able to get comfortable. All needs provided. No distress or pain noted at this time.
--- NOTE | 2021-07-25 06:29 | NUR ---
Closing note Pt resting in bed, no distress or discomfort. On room air, non labored and no SOB at this time. All needs attended to and met. Call light within reach. Bed to lowest/locked/alarmed. On fall/aspiration precaution. Will endorse to day nurse.
[2021-07-25 07:00] VITALS: BP_SYST 107
--- NOTE | 2021-07-25 07:30 | NUR ---
NURSE REPORT REPORT OBTAINED FROM NIGHT NURSE AUSTIN AND THIS NURSE ASSUMED CARE OF PATIENT. RECEIVED PATIENT ASLEEP WITHOUT ANY SXS OF PAIN OR DISTRESS.
--- NOTE | 2021-07-25 09:00 | NUR ---
NURSE NOTES VSS. AFEB. TAKES MED WHOLE. NO C/O PAIN OR DISCOMFORT. ON PUREED DIET, BUT PATIENT REFUSED THE DIET.
--- NOTE | 2021-07-25 09:04 | NUR ---
DISCHARGE PLANNING Called & spoke with Adenike at [facility], is working on getting QUANG from insurance. If able to get QUANG will be able to accept pt. Received msg from director, pt's sister Rocio called & want us to try [facility] again, that they informed her had beds. Faxed referral to [facility]. Addendum: 07/25/21 at 1618 by Billie Hermosillo RN Earlier today spoke with sister Kira, , & pt at bedside. Informed faxed again to [facility] per family request & [facility] is working on getting QUANG. Is agreeable with [facility] if accepted. Later in afternoon called & spoke with Payton at [facility], [facility] has no bed for pt & will not be accepting pt, [facility] has informed family already. Waiting to see if [facility] able to get QUANG.
[2021-07-25] MEDS: DOCUSATE SODIUM 100 MG CAPSULE PO SCH ×2 (10:17→21:21)
[2021-07-25] MEDS: CLOPIDOGREL BISULFATE 75 MG TABLET PO SCH (10:17)
[2021-07-25] MEDS: ASPIRIN 81 MG TAB.CHEW PO SCH (10:17)
[2021-07-25] MEDS: HEPARIN SODIUM,PORCINE 5,000 UNITS/ML VIAL SUBCUT SCH ×2 (10:20→21:22)
[2021-07-25 11:25] VITALS: BP_SYST 107
--- NOTE | 2021-07-25 12:00 | NUR ---
NURSE NOTES VSS. AFEB. SISTER HAD ASKED FOR CHANGE OF DIET. PATIENT REFUSING PUREED DIET. CHARGE NURSE ABLE TO CHANGE DIET TO REGULAR. DIET TAKEN FAIR.
[2021-07-25 15:25] VITALS: BP_SYST 125
--- NOTE | 2021-07-25 15:25 | NUR ---
NURSE NOTES PATIENT VSS. AFEB. NO C/O PAIN OR DISCOMFORT.
--- NOTE | 2021-07-25 18:40 | NUR ---
NURSE NOTES PATIENT ONLY EAT SMALL AMOUNT OF DINNER. NO C/O PAIN OR DISCOMFORT. VSS.
--- NOTE | 2021-07-25 19:20 | NUR ---
NURSE REPORT AND ENDORSEMENT REPORT GIVEN TO NIGHT NURSE TO ASSUME CARE OF PATIENT. SBAR GIVEN AND ALL QUESTIONS ANSWERED.
--- NOTE | 2021-07-25 19:30 | NUR ---
Opening note Received report from day Nurse. Pt sleeping and lying on the side. Sleeping, awake to voice, alertx2-3. Non labored, no SOB at this time. No distress. All needs attended to, call light within reach. Bed to lowest/locked. On fall/aspiration precaution.
[2021-07-25 20:39] VITALS: BP_SYST 104
[2021-07-26] VITALS: BP_SYST 112
--- NOTE | 2021-07-26 | NUR ---
note pt got out of bed, sitting on the chair at bedside. Pt agitated and states when reeducating risk for fall. Kept watch until pt went back to bed safety. Bed to lowest/locked/alarmed.
--- NOTE | 2021-07-26 03:30 | NUR ---
note Pt attempts to get out bed, and agitated when assisting back to bed. reeducate and reorient to call light and risks for falls.
--- NOTE | 2021-07-26 06:32 | NUR ---
closing note Pt resting, awake easily to voice and touch. No respiratory distress on room air. No complaint or discomfort. Pt alertx2-3 non compliance with multiple attempts of getting out of bed. Call light within reach, bed to lowest/locked/alarmed. On fall/aspiration precaution.
[2021-07-26 07:00] VITALS: BP_SYST 105
[2021-07-26 08:00] VITALS: BP_SYST 105
--- NOTE | 2021-07-26 08:00 | NUR ---
NURSE REPORT REPORT OBTAINED FROM NIGHT NURSE AUSTIN AT 0720 AND THIS NURSE ASSUMED CARE OF PATIENT. RECEIVED PATIENT ASLEEP AT BEGINNING OF SHIFT. VSS. AFEB. NO C/O PAIN OR DISCOMFORT.
--- NOTE | 2021-07-26 08:41 | NUR ---
PHYSICAL THERAPY CO-SIGN The Physical Therapy Progress Notes documented by Test Evaluator have been reviewed. Reviewed/Co-Signed by: Rian Ayoub Documentation Done by: OTTO MARIE PTA Addendum: 07/26/21 at 0842 by Rian Ayoub PT Amended: Links added.
--- NOTE | 2021-07-26 08:41 | NUR ---
PHYSICAL THERAPY CO-SIGN The Physical Therapy Progress Notes documented by Directory Assistance Operator have been reviewed. Reviewed/Co-Signed by: Rian Ayoub Documentation Done by: ISABEL ESPINAL PTA Addendum: 07/26/21 at 0842 by Rian Ayoub PT Amended: Links added.
[2021-07-26] MEDS: DOCUSATE SODIUM 100 MG CAPSULE PO SCH ×2 (09:45→20:41)
[2021-07-26] MEDS: ASPIRIN 81 MG TAB.CHEW PO SCH (09:45)
[2021-07-26] MEDS: CLOPIDOGREL BISULFATE 75 MG TABLET PO SCH (09:45)
[2021-07-26] MEDS: HEPARIN SODIUM,PORCINE 5,000 UNITS/ML VIAL SUBCUT SCH ×2 (09:47→20:48)
[2021-07-26 12:00] VITALS: BP_SYST 114
--- NOTE | 2021-07-26 12:00 | NUR ---
NURSE CARE VSS. AFEB. NO C/O PAIN OR DISCOMFORT. MEALS TAKEN WELL.
[2021-07-26 16:00] VITALS: BP_SYST 112
--- NOTE | 2021-07-26 18:00 | NUR ---
NURSE NOTES. VSS. AFEB. NO C/O PAIN OR DISCOMFORT. SISTER CALLED AND ASKED IF PATIENT CAN HAVE HEARING AIDE MADE FOR PATIENT. SISTER CALLED PATIENT CELLPHONE AND RINGER WAS OFF HIS PHONE AND WHEN HE WAS ASKED IF HE WANTS TO TALK TO SISTER, HE SAYS I CANNOT HEAR.
--- NOTE | 2021-07-26 19:20 | NUR ---
NURSE REPORT AND ENDORSEMENT REPORT GIVEN TO NIGHT NURSE AUSTIN TO ASSUME CARE OF PATIENT. PATIENT SISTER HAD SAID HE NEEDS HEARING AIDE, BUT NURSE SAYS HE MUST HAVE SELECTIVE HEARING. HE CAN HEAR HIS SISTER, BUT WHEN THIS NURSE TRIES TO SPEAK WITH HIM, HE ACTS LIKE HE DON'T HEAR HER, SHE STATED. SBAR GIVEN TO NURSE AND ALL QUESTIONS ANSWERED.
--- NOTE | 2021-07-26 19:30 | NUR ---
Opening note Pt resting, lying in bed on the side. Eyes closed, awake easily to voice and touch. No respiratory distress on room air. No complaint or discomfort. No IV access at this time. Pt alert x2-3, unable to follow direction and non compliance. Re education of risk for fall due to patient trying to get out of bed multiple times. Call light within reach, bed to lowest/locked/alarmed. On fall/aspiration precaution. Will continue to monitor and make frequent rounds.
[2021-07-26 20:00] VITALS: BP_SYST 114
[2021-07-27] VITALS: BP_SYST 112
--- NOTE | 2021-07-27 03:30 | NUR ---
Note Pt resting comfortable, no distress noted at this time. all needs met. Bed to lowest/locked/alarmed.
--- NOTE | 2021-07-27 06:30 | NUR ---
closing note Pt resting, awake easily to voice and touch. No respiratory distress on room air. No complaint or discomfort. Pt alertx2-3 confuse at times and reorient/reeducated on fall and safety. Call light within reach, bed to lowest/locked/alarmed. On fall/aspiration precaution.
[2021-07-27 08:30] VITALS: BP_SYST 121
[2021-07-27] MEDS: ASPIRIN 81 MG TAB.CHEW PO SCH ×2 (09:00→10:58)
[2021-07-27] MEDS: CLOPIDOGREL BISULFATE 75 MG TABLET PO SCH ×2 (09:00→10:58)
[2021-07-27] MEDS: DOCUSATE SODIUM 100 MG CAPSULE PO SCH ×3 (09:00→21:00)
--- NOTE | 2021-07-27 09:10 | NUR ---
DISCHARGE PLANNING Called & spoke with Adenike at [facility], states that was put on a Do not admit status from [facility] & working with [facility] if able to take pt. Is waiting to hear back from [facility] today is also waiting to see if [facility] will clear them for admissions. Has QUANG already.
[2021-07-27] MEDS: HEPARIN SODIUM,PORCINE 5,000 UNITS/ML VIAL SUBCUT SCH ×2 (11:00→21:00)
[2021-07-27 16:30] VITALS: BP_SYST 87
--- NOTE | 2021-07-27 16:54 | NUR ---
Referrals sent to [facility]angel,[facility] Har[facility] C[facility], [facility] at [facility] request of the patient's sister Rocio. Blanca [facility] from [facility] called me back and stated she does not take the patient's insurance.
--- NOTE | 2021-07-27 18:00 | NUR ---
Patient refused morning medications-aspirin, colace and plavix, went back and offered the medications few times, but still refused. Dr. Fitzgerald informed. patient also refused noon vital signs.
[2021-07-27 20:00] VITALS: BP_SYST 112
--- NOTE | 2021-07-27 22:00 | NUR ---
ROUNDING NOTES Patient resting in bed - no s/s pain or distress noted. Respirations even and unlabored - head of bed elevated. No IV site - patient refusing despite education about risks of refusal. Bed locked and in lowest position. Call light within reach.
[2021-07-28 00:30] VITALS: BP_SYST 109
[2021-07-28 08:00] VITALS: BP_SYST 130
--- NOTE | 2021-07-28 08:00 | NUR ---
OPENING NOTES AWAKE, ORIENTED TO NAME AND PLACE ONLY. SAYS HE HAS HARD OF HEARING BUT CAN ANSWER QUESTIONS WELL. DENIES ANY PAIN. FALL AND SAFETY CHECKS DONE. CALL LIGHT WITHIN REACH. WILL MONITOR.
[2021-07-28] MEDS: ASPIRIN 81 MG TAB.CHEW PO SCH (09:00)
[2021-07-28] MEDS: DOCUSATE SODIUM 100 MG CAPSULE PO SCH ×2 (09:00→21:00)
[2021-07-28] MEDS: HEPARIN SODIUM,PORCINE 5,000 UNITS/ML VIAL SUBCUT SCH ×2 (09:00→21:00)
[2021-07-28] MEDS: CLOPIDOGREL BISULFATE 75 MG TABLET PO SCH (09:00)
--- NOTE | 2021-07-28 09:27 | NUR ---
Referral sent to [facility] for assistance w/placement for patient. fax [phone]/phone
--- NOTE | 2021-07-28 10:29 | NUR ---
REFUSED MEDS PATIENT REFUSED ALL MEDICATIONS WITNESSED BY MS. MICHELINE RN. EDUCATED BUT STILL REFUSED. SAFETY CHECKS DONE. CALL LIGHT WITHIN REACH.
--- NOTE | 2021-07-28 12:30 | NUR ---
ROUNDS AWAKE, EATING LUNCH. NO COMPLAINS AT THIS TIME. SAFETY CHECKS DONE.
[2021-07-28 12:35] VITALS: BP_SYST 105
--- NOTE | 2021-07-28 14:45 | NUR ---
ROUNDS ASLEEP. SAFETY CHECKS DONE.
[2021-07-28 16:35] VITALS: BP_SYST 121
--- NOTE | 2021-07-28 17:45 | NUR ---
ROUNDS ASLEEP. NO COMPLAINS. VALENCIA LIGHT WITHIN REACH.
--- NOTE | 2021-07-28 18:55 | NUR ---
CLOSING NOTES ASLEEP. ALL NEEDS MET. FALL AND SAFETY CHECKS DONE. CALL LIGHT WITHIN REACH. WILL ENDORSE TO NIGHT NURSE.
--- NOTE | 2021-07-28 19:15 | NUR ---
OPENING NOTES Patient resting in bed - no s/s pain or distress noted. Respirations even and unlabored - head of bed elevated. IV site patent - no s/s redness, infection, or infiltration. Bed locked and in lowest position. Call light within reach. Bed alarm on. Addendum: 07/28/21 at 2224 by Joel Cabello RN Patient has no IV site. aware.
[2021-07-28 20:00] VITALS: BP_SYST 113
--- NOTE | 2021-07-28 22:00 | NUR ---
ROUNDING NOTES Patient resting in bed - no s/s pain or distress noted. Respirations even and unlabored - head of bed elevated. NO IV SITE. Bed locked and in lowest position. Call light within reach. Bed alarm on.
[2021-07-29] VITALS: BP_SYST 121
[2021-07-29] MEDS: ASPIRIN 81 MG TAB.CHEW PO SCH (09:04)
[2021-07-29] MEDS: CLOPIDOGREL BISULFATE 75 MG TABLET PO SCH (09:04)
[2021-07-29] MEDS: HEPARIN SODIUM,PORCINE 5,000 UNITS/ML VIAL SUBCUT SCH ×2 (09:06→21:09)
[2021-07-29] MEDS: DOCUSATE SODIUM 100 MG CAPSULE PO SCH ×2 (09:15→09:16)
[2021-07-29 12:00] VITALS: BP_SYST 117
--- NOTE | 2021-07-29 15:57 | NUR ---
Nutrition F/U Admitting Diagnosis: Syncope, ALOC, TIA Medical History Comment: PMH: methamphetamine use per physician notes Pt developed major stroke w/ L-sided weakness and aphasia as well as mental confusion per physician notes SARS-CoV-2 Ag (Rapid) Negative 07/07 Subjective Information: RD spoke w/ pt's primary RN via phone call who reported that pt will be leaving for SNF at 1900. She stated pt's appetite has been very good and he has been enjoying his meals. Per EMR review, pt had PT earlier today; PO intake average of 76% x10 meals; last BM x1 07/23; Billy scale: 16, no PIs noted. Current diet is adequate/appropriate. Current Diet Order/Nutrition Support: Regular x4 days Pertinent Medications: Reviwed Pertinent Labs: Reviewed Height: 5 feet 8.00 inches Weight: 231 pounds/ 104.179676 kilograms (07/09) -- stable Body Mass Index: 35.12 kg/m2 [place]/Adjusted Body Weight: 154#/70 kg. Adj IBW (obesity): 173#/79 kg Estimated Energy Expenditure (kcals/day) 4156-5587 kcal/day (30-35 kcal/kg Adj IBW d/t stroke) Estimated Protein Required (g/day) 103-158 gm/day (1.3-2 gm/kg Adj IBW d/t stroke) Estimated Fluid Required (l/day) 2.4-2.8 L/day (1 ml/kcal/day for maintenance) Problem/Etiology/Signs/Symptoms Suboptimal nutritional intakes related to lethargy as evidenced by RN report and negligible PO intake records. (*improved) Expected Outcomes/Goals - Monitor appetite and PO intakes w/ goal of pt meeting at least 75% of estimated nutritional needs, labs trending WNL, normal GI function, and skin integrity/wt maintenance Dietitian Recommendations * Recommend continuing regular diet Follow Up Moderate Risk: F/U in 3-5 days
--- NOTE | 2021-07-29 16:02 | NUR ---
Spoke to erin [facility] reference #[id number] Booked BLS 7pm to [facility] Room [facility]
--- NOTE | 2021-07-29 16:02 | NUR ---
Dietitian Recommendations * Recommend continuing regular diet LP, RD Please refer to Nutrition F/U for details.
[2021-07-29 16:10] VITALS: BP_SYST 106
--- NOTE | 2021-07-29 16:14 | NUR ---
SPOKE TO AMER[facility] AT [facility] Transport # [phone] REF#[id number] BOOKED BLS TO [facility] AT 7PM
--- NOTE | 2021-07-29 16:19 | NUR ---
DISCHARGE PLANNING Per Janeen STANLEY, received call from Adenike at [facility], accepted pt & have room for pt room 35B, report [phone], prefer to have pt at 7pm. Janeen informed pts sister Rocio & agreeable. [facility] [place] [facility].
--- NOTE | 2021-07-29 17:10 | NUR ---
PATIENT HAS PLACEMENT NOW AT [facility] ROOM 35B. REPORT CALLED TO GODWIN FINK AT FACILITY. OBTAIN MRSA AND STAT RAPID SAMPLE WITH NEEDING RESULT'S STAT. PICTURE'S OBTAINED OF PRIOR DISCOLORATION OF INNER LT THIGH AND LEFT KNEE. NO OPEN WOUND'S JUST DISCOLORATION. DISCOLORATION MUCH IMPROVED. PATIENT FOLLOWS DIRECTIONS WELL COMPLIANT WITH ALL NURSE'S INSTRUCTION'S PT HERE TODAY WALKING PATIENT AROUND [facility] HAS WALKER HERE IN ROOM TO BE DISCHARGED WITH. TAKING REGULAR DIET WELL. PRESENTLY WAITING ON STAT COVENT TEST ABD WILL CALL RESULTS BACK TO FACILITY WHEN AVAILABLE. PLAN OF CARE CALL FAMILY OF NEW FACILITY DISCHARGE SCHEDULED AT 1900
--- NOTE | 2021-07-29 17:18 | NUR ---
[facility], THE TRANSPORTATION CARRIER OF [facility] P[facility] CALLED AND INFORMED THAT TIPPLE BOSS TIME IS 2300. SPOKE TO EDWIN, [facility] DISPATCH WANTS TO BE SURE THAT PT WILL AGREE TO TRANSFER TO [facility] AT THAT LATE TIME . EDWIN FROM [facility] DISPATCH WILL UP DATE US SHOULD THERE BE CHANGES Addendum: 07/29/21 at 1730 by Dolores Granda MT/ [facility] TEL # [phone]
[2021-07-29] MEDS ORDERED: ACET325T PO (17:35)
[2021-07-29] MEDS ORDERED: ASPI-1393 PO (17:36)
[2021-07-29] MEDS ORDERED: CLOP75TA32 PO (17:37)
[2021-07-29] MEDS ORDERED: DOCU-144 PO (17:37)
[2021-07-29] MEDS ORDERED: SER25 PO (17:38)
[2021-07-29 18:12] VITALS: BP_SYST 106
--- NOTE | 2021-07-29 21:55 | NUR ---
[facility] TO FOLLOWED UP ON THE ROUTE AIDE TIME I SPOKE WITH SASKIA EDWARDS SHORT OF STAFF. SO NEW ROUTE AIDE TIME WILL BE AT 0100
[2021-07-30 00:06] VITALS: BP_SYST 109
--- NOTE | 2021-07-30 01:37 | NUR ---
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
--- NOTE | 2021-07-30 01:49 | NUR ---
CALLED [facility] I SPOKE WITH TRINIDAD I INFORMED HER THAT EVERY TIME I CALLED TRANSPORTATION SERVICE THEY GIVE DIFFERENT HOURS FOR CIVIL ENGINEERING SPECIALIST NOW CIVIL ENGINEERING SPECIALIST WAS MOVED TO 0400
--- NOTE | 2021-07-30 02:50 | NUR ---
CLOSING NOTES PATIENT DISCHARGED TO [facility] ORDERED VIA AMBULANCE WITH STABLE VITAL SIGNS. DENIES PAIN AND DISCOMFORT AT THIS TIME. ALL NEEDS ATTENDED TO. DISCHARGE PACKET ALREADY DONE BY A.M. SHIFT.
== END 2021-07-30 02:50 | DRG 45 ==
LOC: SED 17:20 → STU 21:15 → SMU 07-20 09:21
PROVIDERS: ADMIT Internal Medicine; ATTEND Internal Medicine
PROC: 4A10X4Z Monitoring of Central Nervous Electrical Activity, External Approach (ICD-10-PCS; principal; 2021-07-09)
DX: I63.9 Cerebral infarction, unspecified (principal); G93.41 Metabolic encephalopathy; J18.9 Pneumonia, unspecified organism; R65.10 Systemic inflammatory response syndrome (SIRS) of non-infectious origin without acute organ dysfunction; G81.94 Hemiplegia, unspecified affecting left nondominant side; F15.90 Other stimulant use, unspecified, uncomplicated; E66.9 Obesity, unspecified; R29.810 Facial weakness; R29.707 NIHSS score 7; Z20.822 Contact with and (suspected) exposure to COVID-19; Z68.35 Body mass index [BMI] 35.0-35.9, adult
CPT/HCPCS: 36415; 70450-TC; 70470-TC; 70496; 70498; 71045; 76376; 80048; 80053; 80061; 80307; 81000; 82140; 82962; 83605; 83690; 83880; 84443; 84484; 85025; 85379; 85610-TC; 85730-TC; 86886; 86900; 86901; 87040-TC; 87081; 92610-GN; 93005; 93306; 93880; 95816; 96365; 96375; 97110-GP; 97116-GP; 97163-GP; 97530-GP; 99285; G0378; J0456; J0696; J1644; J2060; J2405; J3480; J7050; J7060; Q9967